=== PATIENT | female | born 1930 | race Caucasian/White ===

== ENCOUNTER → 2016-12-10 | Outpatient (CLI) | payer MEDICARE, OTHER ==
[~2016-12-10] MED LIST: ACHD5005 PO; ACID1TAB PO; ALPR0.25 PO; ALPR0.254 PO; AML5T PO; AMLO5TAB2 PO; BISO1TAB39 PO; BISO5TAB8 PO; BP MED?; CEPH500C PO; CIPR500T78 PO; CLN.1T PO; CLN.1TRX PO; CLON0.1T PO; CLON0.1T14 PO; CLON0.2T; CLON0.2T12 PO; CLON1PAT16 TD; CPR500T PO; CYAN100081 PO; DICY10CA12 PO; DICY10CA59 PO; DOXA1TAB2 PO; DOXA2TAB2 PO; FOLIC ACID PO; HYDR-3714 PO; HYDR-3812 PO; HYDR-3924 PO; INDA1.25 PO; IRB150T PO; ISOS20TA73 PO; LACT1CAP69 PO; LBT200T PO; LEVO250T7 PO; LEVO50TA PO; LEVO75TA57 PO; LEVO75TA6 PO; LISI40TA PO; LORA10TA7 PO; LOSA50TA6 PO; LRT10T PO; METO-272 PO; METO25TA PO; METR500T PO; METR500T21 PO; MOXI400T2 PO; MTR500T PO; ONDA4SOL2 PO; ONDA4TAB11 PO; ONDA4TAB2 PO; ONDA8TAB9 PO; PANT40TA3 PO; PHEN16.223 PO; PHEN16.297 PO; POLY17PO23 PO; SIME80TA16 PO; [UNRECOGNIZED DRUG - REMARK]
[2016-12-10 10:08] LABS: BASOPHILS % (AUTO) 0 % (0-10); EOSINOPHILS # (AUTO) 0.1 10^3/uL (0.0-0.3); EOSINOPHILS % (AUTO) 1 % (0-10); LYMPHOCYTES % (AUTO) 20 % (12-44); MEAN CORPUSCULAR HEMOGLOBIN 31 PG (25-34); MEAN CORPUSCULAR HGB CONC 33 G/DL (32-36); MEAN CORPUSCULAR VOLUME 93 FL (80-99); MONOCYTES # (AUTO) 0.4 X 10^3 (0.0-1.0); MONOCYTES % (AUTO) 7 % (0-12); NEUTROPHILS # (AUTO) 3.7 X 10^3 (1.8-7.8); NEUTROPHILS % (AUTO) 71 % (42-75); PLATELET COUNT 170 10^3/uL (130-400); RED BLOOD COUNT 4.37 10^6/uL (4.35-5.85); RED CELL DISTRIBUTION WIDTH 13.8 % (10.0-14.5); WHITE BLOOD COUNT 5.1 10^3/uL (4.3-11.0)
--- OUTSIDE RECORDS SUMMARY | 2016-12-10 10:08 | XMS REPORT | Continuity of Care Document ---
Author Author [facility] Organization [facility] Address Unknown Phone Unavailable Care Team Providers Care Pastry Wrapper Name Role Phone FAWAD JACOBSON MD PCP Insurance Providers Payer Name Policy Number Subscriber Name Relationship [employer] [id number] Angel Pierre 18 Self / Same As Patient [facility] [id number] Angel Pierre 18 Self / Same As Patient Advance Directives Directive Response Recorded Date/Time Advance Directives Yes 04/05/15 1:04pm Health Care Power of Direct Mail Manager Lea NAEEM GILDA 04/05/15 1:04pm Organ Donor Yes 04/05/15 1:04pm Resuscitation Status Full Code 04/05/15 1:04pm Chief Complaint and Reason for Visit Chief Complaint DIVERTICULITIS;UTI Reason for Visit Diverticulitis Diverticulosis of sigmoid colon Abdominal left lower quadrant tenderness Hypertension Hyponatremia syndrome Problems Medical Problems Problem Onset Date Status Diverticulitis Unknown Active Diverticulosis of sigmoid colon Unknown Active Neck pain on left side Unknown Active Abdominal left lower quadrant tenderness Unknown Active Diverticulosis of sigmoid colon Unknown Active Diverticulosis of sigmoid colon Unknown Active Hypertension Unknown Active Hypertensive urgency Unknown Active Urinary tract infection Unknown Active Nausea alone Unknown Active Hyponatremia syndrome Unknown Active Left sided abdominal pain of unknown cause Unknown Active Hypertensive urgency Unknown Active Constipation Unknown Active Hypertensive urgency Unknown Active Medications Medication Dose Route Sig Days/Qty Instructions Order Date Discontinued Date Status [Bp Med?] DAILY 05/06/12 10/30/13 Discontinued [Thyroid?] DAILY 05/06/12 10/30/13 Discontinued Cephalexin Monohydrate (Keflex) 1 Each PO FOUR TIMES DAILY 7 Days 05/0610/30/13 Discontinued Bisoprolol Fumarate/HCTZ 1 Tab PO DAILY 30 Qty 10/30/13 02/08/14 Discontinued Levothyroxine Sodium 75 Mcg PO DAILY 10/30/13 04/05/15 Discontinued Bisoprolol Fumarate 5 Mg PO DAILY 02/08/14 02/12/14 Discontinued Phenobarb/Hyoscy/Atropine/Scop 16.2 Mg PO THREE TIMES A DAY 02/08/14 02/08/14 Discontinued Acetaminophen/Hydrocodone Bitart 1 Tab PO EVERY 4HRS PRN HEADACHE NEEDED FOR HEADACHE 02/08/14 04/02/15 Discontinued Losartan Potassium 50 Mg PO EVERY 12 HOURS PRN BLOOD PRESSURE 02/12/14 Discontinued Phenobarb/Hyoscy/Atropine/Scop 16.2 Mg PO THREE TIMES A DAY PRN DIVERTICULITUS NEEDED FOR DIVERTICULITIS 02/08/14 06/27/14 Discontinued Loratadine 10 Mg PO DAILY PRN ALLERGIES 02/08/14 01/03/15 Discontinued Labetalol HCl (Trandate) 1 Each PO TWICE A DAY 60 Qty 02/12/14 Discontinued Indapamide 1.25 Mg PO DAILY 03/30/14 06/27/14 Discontinued Losartan Potassium 50 Mg PO EVERY 12 HOURS PRN HYPERTENSION 03/30/14 06/27/14 Discontinued Bisoprolol Fumarate 5 Mg PO DAILY 03/30/14 06/27/14 Discontinued Clonidine Hcl 0.1 Mg PO TWICE A DAY 60 Qty FOR BLOOD PRESSURE 03/30/14 06/27/14 Discontinued Clonidine HCl 0.1 Mg PO NEEDED PRN HYPERTENSION 06/27/14 Discontinued Dicyclomine Hcl 10 Mg PO EVERY 6 HOURS PRN ABDOMINAL PAIN 06/27/14 04/02/15 Discontinued Amlodipine Besylate (Norvasc 5 Mg) 5 Mg PO DAILY 06/27/14 06/28/14 Discontinued Amlodipine Besylate 5 Mg PO TWICE A DAY 60 Qty 06/28/14 01/03/15 Discontinued Clonidine HCl 0.1 Mg PO TWICE A DAY 60 Qty 06/28/14 04/02/15 Discontinued Metoprolol Succinate (Toprol Xl) 1 Each PO DAILY 01/03/15 04/02/15 Discontinued Moxifloxacin Hcl 400 Mg PO DAILY 5 Days 01/03/15 04/02/15 Discontinued Lactobacillus Combo No.10 1 Each PO TWICE A DAY 14 Qty 01/03/15 Discontinued Clonidine HCl 0.2 Mg PO THREE TIMES A DAY 04/02/15 Active Acetaminophen/Hydrocodone Bitart 1 Tab PO EVERY 4HRS PRN PAIN Active Dicyclomine HCl 10 Mg PO EVERY 6 HOURS PRN PAIN 04/02/15 04/08/15 Discontinued Alprazolam 0.25 Mg PO EVERY 8HRS 04/02/15 04/08/15 Discontinued Levothyroxine Sodium 0.5 Each PO DIRECTED 04/02/15 04/05/15 Discontinued Ciprofloxacin HCl 500 Mg PO TWICE A DAY 14 Qty 04/03/15 04/08/15 Discontinued Metronidazole 1 Each PO THREE TIMES A DAY 20 Qty 04/03/15 04/08/15 Discontinued Polyethylene Glycol 17 Gm PO DAILY PRN CONSTIPATION 30 Qty FOR CONSTIPATION 04/03/15 04/05/15 Discontinued Levothyroxine Sodium 75 Mcg PO DIRECTED 30 Qty 04/05/15 04/08/15 Discontinued Levothyroxine Sodium 0.5 Each PO DIRECTED 30 Qty TAKE EVERY TUE. SAT. . 04/05/15 04/08/15 Discontinued Polyethylene Glycol 17 Gm PO DAILY 30 Qty 04/05/15 04/08/15 Discontinued Ondansetron Hcl 4 Mg PO EVERY 4HRS For Nausea 4 Qty 04/05/15 04/08/15 Discontinued Ciprofloxacin HCl 500 Mg PO TWICE A DAY 14 Qty 7 DAY THERAPY FILLED 04/08/15 Active Metronidazole 500 Mg PO THREE TIMES A DAY 20 Qty 04/08/15 Active Polyethylene Glycol 17 Gm PO DAILY 04/08/15 Active Alprazolam 0.25 Mg PO THREE TIMES A DAY PRN ANXIETY 04/08/15 Active Dicyclomine Hcl 10 Mg PO EVERY 6 HOURS PRN PAIN 04/08/15 Active Ondansetron Hcl 4 Mg PO EVERY 4HRS PRN NAUSEA 04/08/15 Active Levothyroxine Sodium 75 Mcg PO MON, WED, FRI 04/08/15 Active Levothyroxine Sodium 37.5 Mcg PO HENDRICKSON,,,SA TAKES 1/2 (75MCG) TABLET 04/08/15 Active Metoprolol Succinate (Toprol Xl) 50 Mg PO BEDTIME OF THIS FOR 2 WEEKS AND HAS NOT BEEN TAKING IT BECAUSE THERE WERE NO 04/08/15 04/08/15 Discontinued Metronidazole 500 Mg PO THREE TIMES A DAY 30 Qty 04/12/15 Active Acidophilus 1 Tab.chew PO BEFORE MEALS 30 Qty 04/12/15 Active Levofloxacin 1 Each PO DAILY 7 Qty 04/12/15 Active Social History Social History Problem Response Recorded Date/Time Alcohol Use Denies Use 04/05/2015 1:05pm Recreational Drug Use No 04/05/2015 1:05pm Recent Foreign Travel No 06/27/2014 5:07pm Recent Infectious Disease Exposure No 06/27/2014 5:07pm Smoking Status Never a Smoker 04/05/2015 1:07pm Do you dip or chew tobacco? No 04/05/2015 1:07pm Query Response Start Date Stop Date Smoking Status Never a Smoker Hospital Discharge Instructions Patient Instructions Physician Instructions Prescription: Transmitted to Pharmacy Patient Instructions: pt to start on the levaquin tomorrow 04/13/15 pt to start metronidazole this evening 04/12/15 pt to call the office on tuesday for an appt in the next 7 to 10 days from discharge Resume Normal Activity: Yes Discharge Diet: Low Residue (no nuts, seeds, popcorn, corn, peas, berries with seeds) Diet After 24 Hours: Clear Liquid if Nauseous Symptoms to Reoprt to DrEfrain: Appetite Changes, Fever Over 101 Degrees F, Diarrhea(Persistant), Shortness of Breath For Problems or Questions: Contact Your Physician, Go to Emergency Room Care Plan Patient Instructions:: pt to start on the levaquin tomorrow 04/13/15pt to start metronidazole this evening 04/12/15pt to call the office on tuesday for an [facility] Discharge Date 04/12/15 1:17pm Disposition 30 STILL A PATIENT Instructions/Education Provided Diverticulitis (DC) Hyponatremia (DC) Diverticulitis Diet (DC) Prescriptions See Medications Section Functional Status Query Response Date Recorded Comprehension Ability Understands Concepts April 08, 2015 8:00am Allergies, Adverse Reactions, Alerts Allergen Type Severity Reaction Status Last Updated Codeine Allergy Unknown N/V Active 02/08/14 Immunizations Name Given Type Date of Pneumonia Vaccine 09/14/12 Historical Date of Influenza Vaccine 08/14/14 Historical Vital Signs Acute Vital Signs Vital Response Date/Time Temperature (Fahrenheit) 96.5 degrees F (97.6 - 99.5) Temperature (Calculated Celsius) 35.70309 degrees C (36.4 - 37.5) Temperature Source Temporal Pulse Rate (adult) 57 bpm (60 - 90) Respiratory Rate 16 bpm (12 - 24) O2 Sat by Pulse Oximetry 100 % (88 - 100) Blood Pressure 178/83 mm Hg Pain Pain Intensity 0 Height (Feet) 5 feet Height (Inches) 1.00 inches Height (Calculated Centimeters) 154.376282 cm Weight (Pounds) 99 pounds Weight (Ounces) 4.0 oz Weight (Calculated Grams) 59292.043 gm Weight (Calculated Kilograms) 45.894930 kilograms Calculated BMI 18.70 Results Laboratory Results Test Name Result Units Flags Reference Collection Date/Time Result Date/ Time Comments White Blood Count 9.5 10^3/uL 4.3-11.0 04/02/2015 11:10pm 04/02/2015 11 :21pm Red Blood Count 4.03 10^6/uL L 4.35-5.85 04/02/2015 11:04/02/2015 11 :21pm Hemoglobin 12.4 G/DL 11.5-16.0 04/02/2015 11:04/02/2015 11:21pm Hematocrit 37 % 35-52 04/02/2015 11:04/02/2015 11:21pm Mean Corpuscular Volume 92 FL 80-99 04/02/2015 11:04/02/2015 11: 21pm Mean Corpuscular Hemoglobin 31 PG 25-34 04/02/2015 11:04/02/2015 11:21pm Mean Corpuscular Hemoglobin Concent 34 G/DL 32-36 04/02/2015 11: 11:21pm Red Cell Distribution Width 12.9 % 10.0-14.5 04/02/2015 11:102014 11:21pm Platelet Count 192 10^3/uL 130-400 04/02/2015 11:1004/02/2015 11: 21pm Mean Platelet Volume 9.6 FL 7.4-10.4 04/02/2015 11:10pm 04/02/2015 11: 21pm Neutrophils (%) (Auto) 78 % H 42-75 04/02/2015 11:10pm 04/02/2015 11: 21pm Lymphocytes (%) (Auto) 15 % 12-44 04/02/2015 11:10pm 04/02/2015 11: 21pm Monocytes (%) (Auto) 7 % 0-12 04/02/2015 11:1004/02/2015 11:21pm Eosinophils (%) (Auto) 0 % 0-10 04/02/2015 11:1004/02/2015 11:21pm Basophils (%) (Auto) 0 % 0-10 04/02/2015 11:1004/02/2015 11:21pm Neutrophils # (Auto) 7.4 X 10^3 1.8-7.8 04/02/2015 11:10pm 04/02/2015 11:21pm Lymphocytes # (Auto) 1.4 X 10^3 1.0-4.0 04/02/2015 11:1004/02/2015 11:21pm Monocytes # (Auto) 0.7 X 10^3 0.0-1.0 04/02/2015 11:10pm 04/02/2015 11: 21pm Eosinophils # (Auto) 0.0 10^3/uL 0.0-0.3 04/02/2015 11:10pm 04/02/2015 11:21pm Basophils # (Auto) 0.0 10^3/uL 0.0-0.1 04/02/2015 11:10pm 04/02/2015 11 :21pm Urine Color YELLOW 04/02/2015 11:0504/02/2015 11:33pm Urine Clarity CLEAR 04/02/2015 11:05pm 04/02/2015 11:33pm Urine pH 7 5-9 04/02/2015 11:05pm 04/02/2015 11:33pm Urine Specific Crandall 1.005 * 1.016-1.022 04/02/2015 11:05pm 2014 11:33pm Urine Protein NEGATIVE NEGATIVE 04/02/2015 11:05pm 04/02/2015 11: 33pm Urine Glucose (UA) NEGATIVE NEGATIVE 04/02/2015 11:05pm 04/02/2015 11 :33pm Urine RBC (Auto) NEGATIVE NEGATIVE 04/02/2015 11:05pm 04/02/2015 11: 33pm Urine Ketones NEGATIVE NEGATIVE 04/02/2015 11:05pm 04/02/2015 11: 33pm Urine Nitrite NEGATIVE NEGATIVE 04/02/2015 11:05pm 04/02/2015 11: 33pm Urine Bilirubin NEGATIVE NEGATIVE 04/02/2015 11:05pm 04/02/2015 11: 33pm Urine Urobilinogen NORMAL MG/DL NORMAL 04/02/2015 11:05pm 04/02/2015 11 :33pm Urine Leukocyte Esterase 1+ * NEGATIVE 04/02/2015 11:05pm 04/02/2015 11 :33pm Urine RBC NONE /HPF 04/02/2015 11:05pm 04/02/2015 11:33pm Urine WBC 10-25 /HPF * 04/02/2015 11:05pm 04/02/2015 11:33pm Urine Bacteria TRACE /HPF 04/02/2015 11:05pm 04/02/2015 11:33pm Urine Squamous Epithelial Cells RARE /HPF 04/02/2015 11:05pm 2014 11:33pm Urine Crystals NONE /LPF 04/02/2015 11:05pm 04/02/2015 11:33pm Urine Casts NONE /LPF 04/02/2015 11:05pm 04/02/2015 11:33pm Urine Mucus NEGATIVE /LPF 04/02/2015 11:05pm 04/02/2015 11:33pm Urine Culture Indicated YES 04/02/2015 11:0504/02/2015 11:33pm Sodium Level 127 MMOL/L L 135-145 04/02/2015 11:1004/02/2015 11:43pm Potassium Level 3.5 MMOL/L L 3.6-5.0 04/02/2015 11:10pm 04/02/2015 11: 43pm Chloride Level 95 MMOL/L L 98-107 04/02/2015 11:10pm 04/02/2015 11:43pm Carbon Dioxide Level 18 MMOL/L L 21-32 04/02/2015 11:10pm 04/02/2015 11: 43pm Blood Urea Nitrogen 7 MG/DL 7-18 04/02/2015 11:10pm 04/02/2015 11:43pm Creatinine 0.79 MG/DL 0.60-1.30 04/02/2015 11:1004/02/2015 11:43pm BUN/Creatinine Ratio 9 04/02/2015 11:04/02/2015 11:43pm Estimat Glomerular Filtration Rate > 60 04/02/2015 11:2014 11:43pm GFR INTERPRETIVE DATA UNITS FOR ESTIMATED GFR (eGFR): mL/min/1.73 M2 REFERENCE RANGE FOR ESTIMATED GFR (eGFR) eGFR NORMAL eGFR >60 MODERATELY DECREASED eGFR 30-59 SEVERLY DECREASED eGFR 15-29 KIDNEY FAILURE <15 (OR DIALYSIS) Glucose Level 115 MG/DL H 70-105 04/02/2015 11:10pm 04/02/2015 11:43pm Calcium Level 10.2 MG/DL H 8.5-10.1 04/02/2015 11:04/02/2015 11: 43pm Total Bilirubin 1.1 MG/DL H 0.1-1.0 04/02/2015 11:04/02/2015 11: 43pm Alkaline Phosphatase 74 U/L 40-136 04/02/2015 11:04/02/2015 11: 43pm Aspartate Amino Transf (AST/SGOT) 33 U/L 5-34 04/02/2015 11:102014 11:43pm Alanine Aminotransferase (ALT/SGPT) 20 U/L 0-55 04/02/2015 11:10 11:43pm Total Protein 7.5 G/DL 6.4-8.2 04/02/2015 11:04/02/2015 11:43pm Albumin 4.6 G/DL H 3.2-4.5 04/02/2015 11:04/02/2015 11:43pm Lipase 40 U/L 8-78 04/02/2015 11:1004/02/2015 11:43pm C-Reactive Protein High Sensitivity 0.06 MG/DL 0.00-0.50 04/02/2015 11: 04/02/2015 11:43pm White Blood Count 4.0 10^3/uL L 4.3-11.0 04/09/2015 5:15am 04/09/2015 5: 40am Red Blood Count 3.67 10^6/uL L 4.35-5.85 04/09/2015 5:1504/09/2015 5: 40am Hemoglobin 11.4 G/DL L 11.5-16.0 04/09/2015 5:1504/09/2015 5:40am Hematocrit 34 % L 35-52 04/09/2015 5:1504/09/2015 5:40am Mean Corpuscular Volume 94 FL 80-99 04/09/2015 5:1504/09/2015 5: 40am Mean Corpuscular Hemoglobin 31 PG 25-34 04/09/2015 5:1504/09/2015 5: 40am Mean Corpuscular Hemoglobin Concent 33 G/DL 32-36 04/09/2015 5:15 5:40am Red Cell Distribution Width 13.5 % 10.0-14.5 04/09/2015 5:152014 5:40am Platelet Count 159 10^3/uL 130-400 04/09/2015 5:1504/09/2015 5:40am Mean Platelet Volume 9.5 FL 7.4-10.4 04/09/2015 5:1504/09/2015 5: 40am Neutrophils (%) (Auto) 67 % 42-75 04/09/2015 5:04/09/2015 5:40am Lymphocytes (%) (Auto) 22 % 12-44 04/09/2015 5:1504/09/2015 5:40am Monocytes (%) (Auto) 9 % 0-12 04/09/2015 5:1504/09/2015 5:40am Eosinophils (%) (Auto) 3 % 0-10 04/09/2015 5:1504/09/2015 5:40am Basophils (%) (Auto) 0 % 0-10 04/09/2015 5:1504/09/2015 5:40am Neutrophils # (Auto) 2.7 X 10^3 1.8-7.8 04/09/2015 5:1504/09/2015 5: 40am Lymphocytes # (Auto) 0.9 X 10^3 L 1.0-4.0 04/09/2015 5:1504/09/2015 5: 40am Monocytes # (Auto) 0.4 X 10^3 0.0-1.0 04/09/2015 5:15am 04/09/2015 5: 40am Eosinophils # (Auto) 0.1 10^3/uL 0.0-0.3 04/09/2015 5:15am 04/09/2015 5 :40am Basophils # (Auto) 0.0 10^3/uL 0.0-0.1 04/09/2015 5:15am 04/09/2015 5: 40am Neutrophils % (Manual) 91 % 04/05/2015 8:20am 04/05/2015 9:04am Lymphocytes % (Manual) 6 % 04/05/2015 8:20am 04/05/2015 9:04am Monocytes % (Manual) 3 % 04/05/2015 8:20am 04/05/2015 9:04am Blood Morphology Comment NORMAL 04/05/2015 8:20am 04/05/2015 9: 04am Urine Color YELLOW 04/05/2015 9:40am 04/05/2015 10:02am Urine Clarity CLEAR 04/05/2015 9:40am 04/05/2015 10:02am Urine pH 7 5-9 04/05/2015 9:40am 04/05/2015 10:02am Urine Specific Crandall 1.010 * 1.016-1.022 04/05/2015 9:40am 2014 10:02am Urine Protein 1+ * NEGATIVE 04/05/2015 9:40am 04/05/2015 10:02am Urine Glucose (UA) NEGATIVE NEGATIVE 04/05/2015 9:40am 04/05/2015 10: 02am Urine RBC (Auto) NEGATIVE NEGATIVE 04/05/2015 9:40am 04/05/2015 10: 02am Urine Ketones NEGATIVE NEGATIVE 04/05/2015 9:40am 04/05/2015 10:02am Urine Nitrite NEGATIVE NEGATIVE 04/05/2015 9:40am 04/05/2015 10:02am Urine Bilirubin NEGATIVE NEGATIVE 04/05/2015 9:40am 04/05/2015 10: 02am Urine Urobilinogen NORMAL MG/DL NORMAL 04/05/2015 9:40am 04/05/2015 10: 02am Urine Leukocyte Esterase 1+ * NEGATIVE 04/05/2015 9:40am 04/05/2015 10: 02am Urine RBC NONE /HPF 04/05/2015 9:40am 04/05/2015 10:02am Urine WBC RARE /HPF 04/05/2015 9:40am 04/05/2015 10:02am Urine Bacteria NEGATIVE /HPF 04/05/2015 9:40am 04/05/2015 10:02am Urine Squamous Epithelial Cells 5-10 /HPF 04/05/2015 9:40am 2014 10:02am Urine Crystals NONE /[facility] 04/05/2015 9:40am 04/05/2015 10:02am Urine Casts PRESENT /[facility] 04/05/2015 9:40am 04/05/2015 10:02am Urine Hyaline Casts RARE /[facility] 04/05/2015 9:40am 04/05/2015 10:02am Urine Mucus NEGATIVE /[facility] 04/05/2015 9:40am 04/05/2015 10:02am Urine Culture Indicated NO 04/05/2015 9:40am 04/05/2015 10:02am Sodium Level 140 MMOL/L 135-145 04/10/2015 6:07am 04/10/2015 7:10am Potassium Level 3.1 MMOL/L L 3.6-5.0 04/10/2015 6:07am 04/10/2015 7:10am Chloride Level 110 MMOL/L H 98-107 04/10/2015 6:07am 04/10/2015 7:10am Carbon Dioxide Level 21 MMOL/L 21-32 04/10/2015 6:07am 04/10/2015 7: 10am Blood Urea Nitrogen 5 MG/DL L 7-18 04/10/2015 6:07am 04/10/2015 7:10am Creatinine 0.67 MG/DL 0.60-1.30 04/10/2015 6:07am 04/10/2015 7:10am BUN/Creatinine Ratio 7 04/10/2015 6:07am 04/10/2015 7:10am Estimat Glomerular Filtration Rate > 60 04/10/2015 6:07am 2014 7:10am GFR INTERPRETIVE DATA UNITS FOR ESTIMATED GFR (eGFR): mL/min/1.73 M2 REFERENCE RANGE FOR ESTIMATED GFR (eGFR) eGFR NORMAL eGFR >60 MODERATELY DECREASED eGFR 30-59 SEVERLY DECREASED eGFR 15-29 KIDNEY FAILURE <15 (OR DIALYSIS) Glucose Level 92 MG/DL 70-105 04/10/2015 6:07am 04/10/2015 7:10am Calcium Level 9.2 MG/DL 8.5-10.1 04/10/2015 6:07am 04/10/2015 7:10am Total Bilirubin 0.7 MG/DL 0.1-1.0 04/09/2015 5:15am 04/09/2015 6:05am Alkaline Phosphatase 53 U/L 40-136 04/09/2015 5:15am 04/09/2015 6:05am Aspartate Amino Transf (AST/SGOT) 33 U/L 5-34 04/09/2015 5:15am 2014 6:05am Alanine Aminotransferase (ALT/SGPT) 22 U/L 0-55 04/09/2015 5:15am 04/09 6:05am Total Protein 5.5 G/DL L 6.4-8.2 04/09/2015 5:15am 04/09/2015 6:05am Albumin 3.6 G/DL 3.2-4.5 04/09/2015 5:15am 04/09/2015 6:05am Amylase Level 128 U/L H 25-125 04/05/2015 8:20am 04/05/2015 8:54am Lipase 37 U/L 8-78 04/05/2015 8:20am 04/05/2015 8:54am Procedures No known history of procedures. Encounters Encounter Location Date/Time Discharged Inpatient [facility] 04/05/15 9:35am Departed Emergency Room [facility] 04/02/15 9:32pm Recent Diagnosis Diverticulitis Diverticulosis of sigmoid colon Abdominal left lower quadrant tenderness Hypertension Hyponatremia syndrome
[2016-12-10 10:28] LABS: BILIRUBIN,URINE NEGATIVE (NEGATIVE); KETONES,URINE NEGATIVE (NEGATIVE); LEUKOCYTE ESTERASE ,URINE NEGATIVE (NEGATIVE); NITRITE,URINE NEGATIVE (NEGATIVE); PH,URINE 7 (5-9); PROTEIN,URINE NEGATIVE (NEGATIVE); UROBILINOGEN,URINE NORMAL (NORMAL)
[2016-12-10 10:30] LABS: ALANINE AMINOTRANSFERASE 15 U/L (0-55); ALBUMIN 4.4 G/DL (3.2-4.5); ANION GAP 9 MMOL/L (5-14); ASPARTATE AMINO TRANSFERASE 22 U/L (5-34); BILIRUBIN,TOTAL 0.9 MG/DL (0.1-1.0); BLOOD UREA NITROGEN 14 MG/DL (7-18); BUN/CREATININE RATIO 17; CARBON DIOXIDE 24 MMOL/L (21-32); CHLORIDE 101 MMOL/L (98-107); CHOLESTEROL 201 MG/DL (< 200); CREATININE SERUM 0.82 MG/DL (0.60-1.30); DIRECT LDL 128 MG/DL (1-129); GFR ESTIMATED > 60; GLUCOSE 76 MG/DL (70-105); POTASSIUM 4.6 MMOL/L (3.6-5.0); SODIUM 134 MMOL/L (135-145); TOTAL PROTEIN 6.8 G/DL (6.4-8.2); TRIGLYCERIDES 161 MG/DL (<150); VLDL CHOLESTEROL 32 MG/DL (5-40)
[2016-12-10 10:39] LABS: SQUAMOUS EPITHELIAL CELL,UR RARE /HPF
== END ==
LOC: HH 09:00
PROVIDERS: ATTEND Family Medicine
DX: I10 Essential (primary) hypertension (principal)
CPT/HCPCS: 80053; 80061; 81000; 85025

== ENCOUNTER → 2017-08-04 | Outpatient (CLI) | payer MEDICARE ==
--- NOTE | 2017-08-04 11:00 | Diagnostic Imaging Report ---
INDICATION: Diverticulitis. Small and large bowel gas pattern was unremarkable. No pathological fecal loading or abnormal bowel distention. No evidence for free air at this exam. IMPRESSION: Nonspecific unremarkable bowel gas pattern. Dictated by: Dictated on workstation # [id number]
== END ==
LOC: RAD 10:08
PROVIDERS: ATTEND Nurse Practitioner Family
DX: R10.84 Generalized abdominal pain (principal)
CPT/HCPCS: 74020

== ENCOUNTER → 2017-08-22 | Outpatient (CLI) | payer MEDICARE ==
[~2017-08-22] MED LIST changes: +IOHEXOL 350 MG/ML 100 ML (OMNIPAQUE 350) VIAL IV ONE; +NS 100 ML (IVPB) BAG IV ONE
[2017-08-22 12:34] LABS: BLOOD UREA NITROGEN 13 MG/DL (7-18); BUN/CREATININE RATIO 15; CREATININE SERUM 0.87 MG/DL (0.60-1.30); GFR ESTIMATED > 60
--- NOTE | 2017-08-22 13:47 | Diagnostic Imaging Report ---
PROCEDURE: CT abdomen and pelvis with contrast. TECHNIQUE: Multiple contiguous axial images were obtained through the abdomen and pelvis after administration of intravenous contrast. INDICATION: Left lower quadrant pain. 100 mL of Omnipaque 350 is administered intravenously. COMPARISON: 08/28/2015. FINDINGS: The lung bases demonstrate minimal atelectasis or scarring in the left lung base. There is a pectus excavatum deformity involving the lower sternum. The liver demonstrates a left hepatic lobe hypodense lesion measuring 8 mm. This is slightly more prominent compared to 08/28/2015 exam and is likely related to a cyst. The spleen, the pancreas and the adrenal glands appear unremarkable. The kidneys have symmetric enhancement and contrast excretion. There is no hydronephrosis. There is diverticulosis. No diverticulitis. There are distended bowel loops which appears to be mostly along the proximal colon and distal small bowel loops near ileocolic anastomosis in the midabdomen. The proximal small bowel loops are not significantly dilated. The findings may relate to enteritis. There is no significant free fluid or fluid collection in the abdomen or pelvis. The osseous structures demonstrate degenerative changes and left convexity scoliosis. There is internal fixation hardware in the proximal right humerus. The abdominal aorta is normal in caliber. No paraaortic significantly enlarged lymph node is seen. IMPRESSION: 1. Diverticulosis. No diverticulitis. 2. There is distention of distal small bowel loops and proximal colon with air-fluid levels favored to be related to enteritis. Correlate clinically and with followup exams if needed. Dictated by: Dictated on workstation # [id number]
== END ==
LOC: RAD 12:09
PROVIDERS: ATTEND Nurse Practitioner Family
DX: K57.30 Diverticulosis of large intestine without perforation or abscess without bleeding (principal); K63.89 Other specified diseases of intestine
CPT/HCPCS: 36415; 74177; 82565; 84520

== ENCOUNTER → 2018-01-10 | Outpatient (CLI) | payer MEDICARE ==
[~2018-01-10] MED LIST changes: -HYDR-3812 PO; -IOHEXOL 350 MG/ML 100 ML (OMNIPAQUE 350) VIAL IV ONE; -NS 100 ML (IVPB) BAG IV ONE
--- NOTE | 2018-01-10 17:21 | Diagnostic Imaging Report ---
INDICATION: Neck and back pain. COMPARISON: None. FINDINGS: Frontal and lateral radiographic views of the thoracic spine were obtained. There is moderate S-shaped scoliotic deformity of the thoracolumbar spine. AP alignment is maintained. There is no significant anteroretrolisthesis. There is no evidence of jumped facets. There are mild multilevel degenerative changes. Please note, the superior margins of the thoracic spine are suboptimally evaluated secondary to overlying osseous and soft tissue attenuation. There appear to be multiple wedge-shaped deformities of the superior thoracic spine. These are age-indeterminate. Mid and lower thoracic vertebral body heights are maintained without evidence of acute fracture. Included lung valenzuela are clear. IMPRESSION: 1. S-shaped scoliotic deformity of the thoracolumbar spine with mild multilevel degenerative changes. 2. Compression deformities of the superior thoracic spine are age indeterminate. Correlation with point tenderness is recommended. If there is concern for acute fracture, correlation with MRI is recommended. Dictated by: Dictated on workstation # [id number]
--- NOTE | 2018-01-10 18:09 | Diagnostic Imaging Report ---
INDICATION: Neck pain. TIME OF EXAM: 4:54 PM FINDINGS: Three-view cervical spine shows normal lordotic curvature. There is severe multilevel degenerative disc disease particularly at C4-5, C5-6 and C6-7 levels where there is significant disc space narrowing and marginal osteophyte formation. In addition, there is severe bilateral multilevel facet arthropathy. Facets are hypertrophic and sclerotic. Prevertebral tissues are unremarkable. No fracture is identified. IMPRESSION: Severe cervical spondylosis. No acute bony abnormality is detected. Dictated by: Dictated on workstation # [id number]
== END ==
LOC: RAD 15:55
PROVIDERS: ATTEND Family Medicine
DX: M47.22 Other spondylosis with radiculopathy, cervical region (principal); M47.25 Other spondylosis with radiculopathy, thoracolumbar region; M41.85 Other forms of scoliosis, thoracolumbar region; M43.8X4 Other specified deforming dorsopathies, thoracic region
CPT/HCPCS: 72040; 72072

== ENCOUNTER → 2018-01-18 | Outpatient (CLI) | payer MEDICARE ==
--- NOTE | 2018-01-18 14:27 | Diagnostic Imaging Report ---
INDICATION: Neck pain and back pain. TECHNIQUE: Multiplanar multisequence imaging of the thoracic spine was performed without contrast. FINDINGS: There is hyper kyphotic curvature to the thoracic spine. There is edema identified within the T3 and T5 vertebral bodies. There appears to be a fracture through the inferior endplate of T3 and the superior endplate of T5. Very minimal loss of height is seen. There is a chronic compression fracture deformity of the T4 vertebral body which demonstrates normal homogeneous signal intensity. No retropulsion is identified. The remaining thoracic vertebrae demonstrate normal stature and normal signal. The thoracic spinal cord demonstrates homogeneous signal intensity. No central canal stenosis is seen. IMPRESSION: Findings consistent with acute T3 and T5 compression fractures without evidence of retropulsion. There is a chronic compression fracture deformity of T4 vertebral body. Dictated by: Dictated on workstation # [id number]
== END ==
LOC: RAD 11:47
PROVIDERS: ATTEND Family Medicine
DX: S22.049A Unspecified fracture of fourth thoracic vertebra, initial encounter for closed fracture (principal)
CPT/HCPCS: 72146

== ENCOUNTER → 2018-02-08 | Outpatient (CLI) | payer MEDICARE ==
--- NOTE | 2018-02-08 13:55 | Diagnostic Imaging Report ---
INDICATION: Back pain AP and lateral views of the lumbar spine are obtained. There is some loss of height of L1 which is of indeterminate age. L2-L5 are normal in height. There is some disc space narrowing at L5-S1 with osteophyte formation. There is slight anterolisthesis of L3 on L4. There is facet degenerative change at L4-5 and L5-S1. IMPRESSION: 1. Degenerative changes in the lumbar spine at L5-S1 and L3-4. There is loss of height of L1 of indeterminate age. If there is focal pain in this area, consider MRI to determine if this is acute. Dictated by: Dictated on workstation # [id number]
--- NOTE | 2018-02-08 14:06 | Diagnostic Imaging Report ---
INDICATION: Fall with bilateral hip pain. TIME OF EXAM: 1:54 p.m. Multiple views of the pelvis and bilateral hips were obtained. FINDINGS: An intramedullary sarbjit and compression screw transfix the right hip. Hardware appears intact. Femoroacetabular alignment is normal bilaterally. No fractures are seen. The rami appear intact. SI joints and symphysis are non-widened. IMPRESSION: Postop changes of the right hip. No acute bony abnormality is detected. Dictated by: Dictated on workstation # [id number]
--- NOTE | 2018-02-08 14:23 | Diagnostic Imaging Report ---
PROCEDURE: CT head without contrast. TECHNIQUE: Multiple contiguous axial images were obtained through the brain without the use of intravenous contrast. INDICATION: Fall with head injury. COMPARISON: Comparison is made with prior exam from 10/14/2016. FINDINGS: The ventricles and sulci are prominent consistent with patient's age. Moderate periventricular hypodensity is noted consistent with senescent change. No sulcal effacement, midline shift or hemorrhage is detected. Cisterns are patent. The visualized paranasal sinuses are clear. IMPRESSION: Senescent changes. No acute intracranial process is detected. Dictated by: Dictated on workstation # [id number]
== END ==
LOC: RAD 13:15
PROVIDERS: ATTEND Nurse Practitioner Family
DX: S09.90XA Unspecified injury of head, initial encounter (principal); M47.817 Spondylosis without myelopathy or radiculopathy, lumbosacral region; M51.36 Other intervertebral disc degeneration, lumbar region; W19.XXXA Unspecified fall, initial encounter
CPT/HCPCS: 70450; 72100; 73523

== ENCOUNTER → 2018-02-20 | Outpatient (CLI) | payer MEDICARE, OTHER ==
--- NOTE | 2018-02-20 15:04 | Diagnostic Imaging Report ---
PROCEDURE: MRI lumbar spine. TECHNIQUE: Multiplanar, multisequence MRI of the lumbar spine was performed without contrast. DATE: 02/20/2018. COMPARISON: Lumbar spine radiographs 02/08/2018. INDICATION: 87-year-old female, fall three weeks ago. Low back pain with bilateral leg pain and tingling. FINDINGS: There is a compression fracture of the L1 vertebral body with visualized fracture line and marrow edema consistent with an acute fracture. There is slight retropulsion of the posterior superior aspect of the L1 vertebral body beyond the expected posterior vertebral body margin by 2.5 mm. There is no associated spinal stenosis. There is approximately 25% vertebral body height loss at this level. There is no additional identified compression deformity. There is minimal grade 1 anterolisthesis of L3 on L4. There is no evidence of marrow infiltrating or replacing process. 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 The visualized cord and conus medullaris is unremarkable and terminates at the L1 level. There is dgvuciwq-sr-qcsytx disc height loss at L3-L4. There is aeok-hc-kbzfmpxy disc height loss at L4-L5. There is severe disc height loss at L5-S1. L1-L2: There is no disc bulge. The facet joints and ligamentum flavum are unremarkable. There is no foraminal narrowing. There is no spinal canal stenosis. L2-L3: There is no disc bulge. The facet joints and ligamentum flavum are unremarkable. There is no foraminal narrowing. There is no spinal canal stenosis. L3-L4: There is diffuse disc bulge. There are advanced bilateral facet degenerative changes with ligamentum flavum hypertrophy. There is mild right foraminal narrowing. There is gscokmqn-lt-adincm spinal canal stenosis. L4-L5: There is diffuse disc bulge. There are advanced facet degenerative changes with ligamentum flavum hypertrophy. There is mild right greater than left foraminal narrowing. There is siufmumc-cz-oegjqj spinal canal stenosis. L5-S1: There is a tiny broad-based posterior disc protrusion without identified nerve root contact. The facet joints and ligamentum flavum are unremarkable. There is no foraminal narrowing. There is no spinal canal stenosis. IMPRESSION: 1. Acute compression fracture of the L1 vertebral body with approximately 25% height loss and slight retropulsion of the posterior superior aspect of the L1 vertebral body towards the spinal canal measuring 2.5 mm without associated spinal stenosis. 2. Disc and facet degenerative changes of the lumbar spine most notable at L3-L4 and L4-L5 as described above. Dictated by: Dictated on workstation # [id number]
== END ==
LOC: RAD 13:39
PROVIDERS: ATTEND Orthopaedic Surgery Orthopaedic Surgery of the Spine
DX: M48.56XA Collapsed vertebra, not elsewhere classified, lumbar region, initial encounter for fracture (principal); M48.061 Spinal stenosis, lumbar region without neurogenic claudication; M89.9 Disorder of bone, unspecified; M51.26 Other intervertebral disc displacement, lumbar region; M47.896 Other spondylosis, lumbar region; M51.36 Other intervertebral disc degeneration, lumbar region
CPT/HCPCS: 72148

== ENCOUNTER → 2018-03-30 | Outpatient (CLI) | payer MEDICARE ==
--- NOTE | 2018-03-30 16:47 | Diagnostic Imaging Report ---
INDICATION: Osteoporosis. COMPARISON: No prior studies are available for comparison. FINDINGS: Bone mineral analysis of the lumbar spine and left hip was performed. The patient appears to have hardware in the right hip. Bone mineral density of the lumbar spine is 0.628 with a T score -4.8. Bone mineral density of the left femoral neck is 0.598 with a T score -3.2. 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 Dictated by: Dictated on workstation # [id number]
== END ==
LOC: RAD 10:33
PROVIDERS: ATTEND Neurological Surgery
DX: M81.0 Age-related osteoporosis without current pathological fracture (principal)
CPT/HCPCS: 77080

== ENCOUNTER → 2018-05-11 | Outpatient (CLI) | payer MEDICARE ==
[~2018-05-11] VITALS: Ht 157.5 cm; Wt 46.2 kg
[~2018-05-11] MED LIST changes: +CARV6.252 PO; +CRAN500C4 PO; +DENOSUMAB 60 MG/1 ML (PROLIA) SQ ONE; +DOCU100C37 PO; +ESTR42.52 VG; +FESO4TAB PO; +FOLI20CA PO; +L.AC1CAP6 PO; +OMEP20CA12 PO
[2018-05-11 13:43] VITALS: BP 140/62
[2018-05-11 14:02] VITALS: BP 140/62
== END ==
LOC: SDC 12:59
PROVIDERS: ATTEND Family Medicine
DX: M81.0 Age-related osteoporosis without current pathological fracture (principal)
CPT/HCPCS: 96372

== ENCOUNTER → 2018-06-13 | Outpatient (CLI) | payer MEDICARE ==
[~2018-06-13] MED LIST changes: -DENOSUMAB 60 MG/1 ML (PROLIA) SQ ONE
--- NOTE | 2018-06-13 13:11 | Diagnostic Imaging Report ---
INDICATION: Left lower quadrant abdominal pain. COMPARISON: 08/04/2017. FINDINGS: Supine and upright radiographic views of the abdomen were obtained. A few air-fluid levels are noted scattered throughout the large and small bowel. Small bowel loops are nondistended. There is no large collection of free intraperitoneal air. No unexpected extraosseous calcifications or radiopaque foreign bodies are seen. Included portions of the lung bases show mild enlargement of the cardiac silhouette. 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 IMPRESSION: Few air-fluid levels are seen scattered throughout the large and small bowel, but small bowel loops are otherwise nondistended. Findings are nonspecific, but can be seen with underlying enteritis/diarrhea. Dictated by: Dictated on workstation # [id number]
== END ==
LOC: RAD 12:29
PROVIDERS: ATTEND Nurse Practitioner Family
DX: R10.32 Left lower quadrant pain (principal)
CPT/HCPCS: 74019

== ENCOUNTER → 2018-07-03 | Outpatient (CLI) | payer MEDICARE ==
[~2018-07-03] MED LIST changes: +IOHEXOL 350 MG/ML 100 ML (OMNIPAQUE 350) VIAL IV ONE; +NS 250 ML (IVPB) BAG IV ONE
[2018-07-03 14:31] LABS: BUN/CREATININE RATIO 13; CREATININE SERUM 0.86 MG/DL (0.60-1.30); GFR ESTIMATED > 60
--- NOTE | 2018-07-03 15:43 | Diagnostic Imaging Report ---
PROCEDURE: CT abdomen and pelvis with contrast. TECHNIQUE: Multiple contiguous axial images were obtained through the abdomen and pelvis after administration of intravenous contrast. INDICATION: Left lower quadrant abdominal pain for two months. COMPARISON: Comparison is made to study of 08/22/2017. FINDINGS: There is mild cardiomegaly with persistent pectus excavatum. No focal splenic lesion is identified. 1 cm nodule in the lateral segment of the left hepatic lobe is unchanged and likely represents a cyst. Gallbladder, pancreas and adrenal glands are stable and unremarkable in appearance. There is no evidence of adrenal gland or renal lesion. There is excretion of contrast from both kidneys. There is mild fluid distention of small bowel with moderate amount of stool throughout the colon. There does appear to be twisting of mesenteric vessels in the right lower quadrant adjacent to site of previous surgical suture line. This is also site of most pronounced fluid distention of distal small bowel. Partially opacified urinary bladder is unremarkable. There is no organized fluid collection to indicate abscess or hematoma. There is rather advanced lumbar spondylosis with L1 compression fracture of indeterminate age. IMPRESSION: 1. Twisting of the mesentery in the right lower quadrant with distention of distal small bowel with fluid. Partial closed loop small bowel obstruction cannot be fully excluded. Consideration could be given to small bowel follow-through for assessment. 2. Compression fracture at L1 was not definitely present on previous study and clinical correlation to possible pain at this site would be useful. Dictated by: Dictated on workstation # [id number]
== END ==
LOC: RAD 14:01
PROVIDERS: ATTEND Nurse Practitioner Family
DX: K56.2 Volvulus (principal); K56.609 Unspecified intestinal obstruction, unspecified as to partial versus complete obstruction
CPT/HCPCS: 36415; 74177; 82565; 84520

== ENCOUNTER 2019-06-27 07:48 | Inpatient (IN) | payer MEDICARE ==
[~2019-06-27] VITALS: Ht 160 cm; Wt 49.2 kg
[~2019-06-27 07:48] MED LIST changes: +AMLO5TAB9 PO; -IOHEXOL 350 MG/ML 100 ML (OMNIPAQUE 350) VIAL IV ONE; +METR-145 PO; -METR500T21 PO; -NS 250 ML (IVPB) BAG IV ONE; -OMEP20CA12 PO; +OMEP20CA13 PO
--- NOTE | 2019-06-27 07:48 | NUR ---
ABRASION/SKIN TEAR TO RIGHT LOWER LEG. PT STATES THAT DID NOT HAPPEN TODAY ET IT WAS SEVERAL WEEKS AGO.
--- NOTE | 2019-06-27 08:04 | ED Fall/Injury ---
General Stated Complaint: FALL;R HIP PAIN Source: patient, EMS, senior care records Exam Limitations: no limitations History of Present Illness Date Seen by Provider: Jun 27, 2019 Time Seen by Provider: 07:41 Initial Comments Patient presents to ER by EMS with chief complaint that last night around 10:00 in the assisted living at [facility] she had a fall and pulled her call light immediately. She denies that she struck her head or loss consciousness. No nausea sweats headache. She was helped back to bed and this morning was unable to stand and put any weight on her right leg. She's not having any external ro tation or deformity obviously. She has no cough fever chills nausea vomiting diarrhea or constipation. She does have a history of chronic pain and uses hydrocodone. She does not require anything for pain from EMS. She is not on a blood thinner and is not diabetic. She does endorse dementia. She has feeling in her bilateral toes and able to wiggle them. She denies dysuria. Last oral intake was last night at dinnertime. Allergies and Home Medications Allergies Coded Allergies: aspirin (Verified Allergy, Unknown, 02/11/16) codeine (Verified Adverse Reaction, Unknown, N/V, 08/29/15) losartan (Unverified Adverse Reaction, Unknown, DIZZINESS, 08/29/15) Home Medications Amlodipine Besylate 5 Mg Tablet, 5 MG PO DAILY, (Reported) Carvedilol 6.25 Mg Tablet, 6.25 MG PO BID, (Reported) Cranberry Extract 500 Mg Capsule, 500 MG PO DAILY, (Reported) Docusate Sodium 100 Mg Capsule, 100 MG PO BID, (Reported) Estradiol 42.5 Gm Cream.appl, 1.25 GM VG DAILY, (Reported) Fesoterodine Fumarate 4 Mg Tab.sr.24h, 4 MG PO DAILY, (Reported) Folic Acid 20 Mg Capsule, 20 MG PO DAILY, (Reported) L.acidoph & Paracasei,B.lactis 1 Each Capsule, 2 EACH PO DAILY, (Reported) Levothyroxine Sodium 50 Mcg Tablet, 50 MCG PO DAILY, (Reported) Lisinopril 40 Mg Tablet, 20 MG PO BID, (Reported) TAKES 1/2 (40MG) TABLET Omeprazole 20 Mg Capsule.dr, 20 MG PO DAILY, (Reported) Patient Home Medication List Home Medication List Reviewed: Yes Review of Systems Review of Systems Constitutional: No chills, No diaphoresis Eyes: Denies Blindness, Denies Blurred Vision Ears, Nose, Mouth, Throat: denies ear pain, denies nose pain Respiratory: No cough, No short of breath Cardiovascular: No chest pain, No edema Gastrointestinal: No abdominal pain, No constipation, No diarrhea Genitourinary: No discharge, No dysuria Musculoskeletal: see HPI, joint pain Skin: other (skin tear on the anterior distal right smith) Past Svriivk-Qfnfvn-Dcslqr Hx Patient Social History Alcohol Use: Denies Use Recreational Drug Use: No Smoking Status: Never a Smoker 2nd Hand Smoke Exposure: No Recent Hopitalizations: No Immunizations Up To Date Tetanus Booster (TDap): Unknown PED Vaccines UTD: No Date of Pneumonia Vaccine: Aug 14, 2010 Date of Influenza Vaccine: Aug 14, 2014 Seasonal Allergies Seasonal Allergies: Yes Past Medical History Abdominal, Appendectomy, Eye Surgery, Hysterectomy, Oophorectomy, Tonsillectomy Asthma Currently Using CPAP: No Currently Using BIPAP: No Hypertension Reproductive Disorders: Yes Female Reproductive Disorders: Endometriosis [employer] History: Hysterectomy, Menopausal Sexually Transmitted Disease: No HIV/AIDS: No Obstructive Bowel, Chronic Constipation, Diverticulosis, Irritable Bowel Arthritis Hypothyroidsim Cataract Loss of Vision: Denies Hearing Impairment: Denies Anxiety, Depression Adverse Reaction/Blood Tranf: No Family Medical History Alcoholism 03 FATHER, 09 BROTHER, 09 BROTHER, Cancer 09 BROTHER, 09 BROTHER, Cataract 09 SISTER Family history: Arthritis 09 SISTER 09 SISTER, 09 SISTER, Family history: Breast disease 09 SISTER Family history: Cardiovascular disease 09 SISTER Family history: Glaucoma 09 SISTER, Family history: Hypertension 03 FATHER, 03 MOTHER, 09 BROTHER, 09 BROTHER, 09 SISTER 09 SISTER, Family history: Osteoporosis 09 SISTER 09 SISTER, 09 SISTER, Headache 03 MOTHER, Heart disease 09 SISTER Tuberculosis 09 BROTHER, Visual impairment 09 SISTER No Family History of: Abdominal aortic aneurysm Cancer of colon Chest pain Congenital heart disease Congestive heart failure Cystic fibrosis Dementia Dysphagia Family history: Allergy Family history: Alzheimer's disease Family history: Asthma Family history: Coronary thrombosis Family history: Diabetes mellitus Family history: Gastrointestinal disease Family history: Thyroid disorder Hearing loss Hereditary disease History of - anemia History of - disorder History of - respiratory disease History of drug abuse Human immunodeficiency virus (HIV) seropositivity Hypercholesterolemia Infertile Kidney disease Malignant neoplasm of lung Myocardial infarction Parkinson's disease Prostate cancer Psychotic disorder Seizure disorder Stroke Heart Disease, Cancer, Hypertension Physical Exam Vital Signs Vital Signs - First Documented 06/27/19 07:48 Temp 96.5 Pulse 66 Resp 16 B/P (MAP) 141/77 (98) Pulse Ox 89 O2 Delivery Nasal Cannula O2 Flow Rate 2.00 Capillary Refill : Height, Weight, BMI Height: 5'2.00" Weight: 101lbs. 12.0oz. 46.398101bt; 18.6 BMI Method:Stated General Appearance: WD/WN, no apparent distress HEENT: PERRL/EOMI, normal ENT inspection, TMs normal, pharynx normal, other (atraumatic head without Raceo sign and raccoon eyes or hemotympanum.) Neck: non-tender, full range of motion, supple, normal inspection Cardiovascular: normal peripheral pulses, regular rate, rhythm Respiratory: lungs clear, normal breath sounds, no respiratory distress, no accessory muscle use Peripheral Pulses: 2+ Dorsalis Pedis (R), 2+ Left Dors-Pedis (L), 2+ Radial Pulses (R), 2+ Radial Pulses (L) Gastrointestinal: normal bowel sounds, non tender, soft, no organomegaly Neurologic/Psychiatric: no motor/sensory deficits, alert, normal mood/affect, oriented x 3 Skin: other (V-shaped superficial skin tear left smith) [place] Coma Score Best Eye Response: (4) Open Spontaneously Best Verbal Response: (5) Oriented Best Motor Response: (6) Obeys Commands [place] Total: 15 Progress/Results/Core Measures Results/Orders Lab Results Laboratory Tests Test 06/27/19 08:03 06/27/19 08:07 Range/Units Urine Color YELLOW Urine Clarity CLEAR Urine pH 6.5 5-9 Urine Specific [place] 1.010 L 1.016-1.022 Urine Protein NEGATIVE NEGATIVE Urine Glucose (UA) NEGATIVE NEGATIVE Urine Ketones NEGATIVE NEGATIVE Urine Nitrite NEGATIVE NEGATIVE Urine Bilirubin NEGATIVE NEGATIVE Urine Urobilinogen NORMAL NORMAL MG/DL Urine Leukocyte Esterase 2+ H NEGATIVE Urine RBC (Auto) NEGATIVE NEGATIVE Urine RBC 0-2 /HPF Urine WBC 2-5 /HPF Urine Squamous Epithelial Cells RARE /HPF Urine Crystals NONE /LPF Urine Bacteria TRACE /HPF Urine Casts NONE /LPF Urine Mucus NEGATIVE /LPF Urine Culture Indicated YES White Blood Count 9.5 4.3-11.0 10^3/uL Red Blood Count 3.82 L 4.35-5.85 10^6/uL Hemoglobin 11.8 11.5-16.0 G/DL Hematocrit 34 L 35-52 % Mean Corpuscular Volume 89 80-99 FL Mean Corpuscular Hemoglobin 31 25-34 PG Mean Corpuscular Hemoglobin Concent 35 32-36 G/DL Red Cell Distribution Width 12.7 10.0-14.5 % Platelet Count 176 130-400 10^3/uL Mean Platelet Volume 9.3 7.4-10.4 FL Neutrophils (%) (Auto) 88 H 42-75 % Lymphocytes (%) (Auto) 6 L 12-44 % Monocytes (%) (Auto) 6 0-12 % Eosinophils (%) (Auto) 0 0-10 % Basophils (%) (Auto) 0 0-10 % Neutrophils # (Auto) 8.3 H 1.8-7.8 X 10^3 Lymphocytes # (Auto) 0.6 L 1.0-4.0 X 10^3 Monocytes # (Auto) 0.6 0.0-1.0 X 10^3 Eosinophils # (Auto) 0.0 0.0-0.3 10^3/uL Basophils # (Auto) 0.0 0.0-0.1 10^3/uL Neutrophils % (Manual) 89 % Lymphocytes % (Manual) 4 % Monocytes % (Manual) 4 % Eosinophils % (Manual) 1 % Basophils % (Manual) 0 % Band Neutrophils 2 % Blood Morphology Comment NORMAL Prothrombin Time 13.0 12.2-14.7 SEC INR Comment 0.9 0.8-1.4 Activated Partial Thromboplast Time 36 H 24-35 SEC Sodium Level 122 *L 135-145 MMOL/L Potassium Level 4.8 3.6-5.0 MMOL/L Chloride Level 91 L 98-107 MMOL/L Carbon Dioxide Level 23 21-32 MMOL/L Anion Gap 8 5-14 MMOL/L Blood Urea Nitrogen 13 7-18 MG/DL Creatinine 1.05 0.60-1.30 MG/DL Estimat Glomerular Filtration Rate 49 BUN/Creatinine Ratio 12 Glucose Level 114 H 70-105 MG/DL Calcium Level 9.5 8.5-10.1 MG/DL Corrected Calcium 9.2 8.5-10.1 MG/DL Total Bilirubin 0.9 0.1-1.0 MG/DL Aspartate Amino Transf (AST/SGOT) 32 5-34 U/L Alanine Aminotransferase (ALT/SGPT) 17 0-55 U/L Alkaline Phosphatase 87 40-136 U/L Total Protein 7.1 6.4-8.2 GM/DL Albumin 4.4 3.2-4.5 GM/DL My Orders Orders - DANA,LISA J Chest 1 View, Ap/Pa Only (06/27/19 07:56) Ct Head/Cervical Spine Wo (06/27/19 07:56) Catheter(Urinary) Insert & Ass 03,15 (06/27/19 07:56) Ua Culture If Indicated (06/27/19 07:56) Cbc With Automated Diff (06/27/19 07:56) Comprehensive Metabolic Panel (06/27/19 07:56) Protime With Inr (06/27/19 07:56) Partial Thromboplastin Time (06/27/19 07:56) Hip, Right, 2 Views (06/27/19 07:58) Manual Differential (06/27/19 08:07) Urine Culture (06/27/19 08:03) Ed Iv/Invasive Line Start (06/27/19 08:41) Ns Iv 500 Ml (Sodium Chloride 0.9%) (06/27/19 08:41) Fentanyl Injection (Sublimaze Injection (06/27/19 09:15) Ct Pelvis Wo (06/27/19 09:49) Fentanyl Injection (Sublimaze Injection (06/27/19 10:00) Ed Iv/Invasive Line Start (06/27/19 11:08) Ns Iv 500 Ml (Sodium Chloride 0.9%) (06/27/19 11:08) Hydrocodone/Apap 10/325 Tablet (Lortab 1 (06/27/19 11:30) General/Regular (06/27/19 Lunch) Medications Given in ED Current Medications Medications Dose Ordered Sig/Ranjit Route Start Time Stop Time Status Last Admin Dose Admin Acetaminophen/ Hydrocodone Bitart 1 ea ONCE ONCE PO 06/27/19 11:30 06/27/19 11:31 DC 06/27/19 11:45 1 EA Fentanyl Citrate 50 mcg ONCE ONCE IVP 06/27/19 09:15 06/27/19 09:16 DC 06/27/19 09:15 50 MCG Fentanyl Citrate 50 mcg ONCE ONCE IVP 06/27/19 10:00 06/27/19 10:01 DC 06/27/19 10:19 50 MCG Sodium Chloride 500 ml @ 0 mls/hr Q0M ONCE IV 06/27/19 08:41 06/27/19 08:42 DC 06/27/19 09:10 500 MLS/HR Sodium Chloride 500 ml @ 0 mls/hr Q0M ONCE IV 06/27/19 11:08 06/27/19 11:09 DC 06/27/19 11:46 500 MLS/HR Vital Signs/I&O 06/27/19 06/27/19 07:48 07:48 Temp 96.5 Pulse 66 Resp 16 B/P (MAP) 141/77 (98) Pulse Ox 89 89 O2 Delivery Nasal Cannula Room Air O2 Flow Rate 2.00 Progress Progress Note #1: Time: 08:03 Progress Note It's been 10 hours since her fall and we have offered to do imaging of her head versus observation and she preferred to do imaging. X-ray of the right hip, chest x-ray Roberto catheter urinalysis and labs to include PT/INR and PTT. Progress Note #2: Time: 10:41 Progress Note Left voicemail with Dr. Paul, orthopedic surgery. Noted 3 fractures of the right sacral alar and inferior/superior pubic rami. Progress Note #3: Time: 10:51 Progress Note When I have inpatient physical therapy come down and advise where she would qualify and if not then we'll look for an observation stay so they can set up some, rehabilitation home. Her daughter advises that she stayed at [facility] after she fractured her hip and would be okay to go back there. Progress Note #4: Time: 13:29 Progress Note Inpatient physical therapy has continued working with her insurance to get her approved however they said it will be some time before they get an answer. Plan to discuss the case with primary care Dr. Graham about an observation stay for pain management and consult for placement. The patient's daughter states that she stayed in the [facility] after fracturing her hip and would prefer to go that direction if inpatient physical therapy is not available. Diagnostic Imaging Diagonstic Imaging: Xray Plain Films/CT/US/NM/MRI: chest (1v) Comments NAME: ANGEL STARK [facility] REC#: [id number] PT STATUS: REG ER : 1930 PHYSICIAN: LISA CORTEZ MD ADMIT DATE: 06/27/19/ER Draft Date of Exam:06/27/19 CHEST 1 VIEW, AP/PA ONLY INDICATION: Fall. Time of exam: 8:55 AM Comparison is made with prior chest from 10/13/2016. The heart is enlarged but stable. The lungs appear clear. No infiltrates are seen. There is no effusion or pneumothorax. IMPRESSION: No acute cardiopulmonary process is detected. Dictated on workstation # [id number] Dict: 06/27/19908 Trans: 06/27/19911 ELA [id number] Interpreted by: JO-ANN SANTACRUZ MD Electronically signed by: Reviewed: Reviewed by Me Diagonstic Imaging: Xray Plain Films/CT/US/NM/MRI: hip (r) Comments [facility], [place] NAME: ANGEL STARK [facility] REC#: [id number] PT STATUS: REG ER : 1930 PHYSICIAN: LISA CORTEZ MD ADMIT DATE: 06/27/19/ER Draft Date of Exam:06/27/19 HIP, RIGHT, 2 VIEWS Indication: Pain Comparison: 02/08/2018 Technique: 2 radiographs of the right hip dated 06/27/2019 Findings: Gamma nail is again noted within the proximal right femur, appearing stable from the prior examination without evidence of hardware complication. Chain sutures noted within the lower pelvis, just the right of midline. No acute fracture or dislocation. No obstructive osseous process. Right femoral head maintains normal shape and contour. Impression: Postsurgical changes within the right femur without evidence of hardware complication. If there remains high clinical concern for underlying occult fracture, further evaluation with CT could be obtained. Dictated on workstation # [id number] Dict: 06/27/19904 Trans: 06/27/19909 CVB [id number] Interpreted by: JIGAR DE LEON MD Electronically signed by: Reviewed: Reviewed by Me Diagonstic Imaging: CT (noncontrast) Plain Films/CT/US/NM/MRI: c-spine, head Comments [facility], [place] NAME: ANGEL STARK [employer] [facility] REC#: [id number] PT STATUS: REG ER : 1930 PHYSICIAN: LISA CORTEZ MD ADMIT DATE: 06/27/19/ER Draft Date of Exam:06/27/19 CT HEAD/CERVICAL SPINE WO PROCEDURE: CT head and CT cervical spine without contrast. TECHNIQUE: Multiple contiguous axial images were obtained through the brain and cervical spine without the use of intravenous contrast. Sagittal and coronal reformations through the cervical spine were then performed. Auto Exposure Controls were utilized during the CT exam to meet ALARA standards for radiation dose reduction. INDICATION: Fall. COMPARISON: Correlation is made with prior head CT from 02/08/2018. CT HEAD: Ventricles and sulci are prominent consistent with the patient's age. Moderate periventricular hypodensity is noted consistent with senescent change. No midline shift or sulcal effacement is identified. No acute intra-axial or extra-axial hemorrhage is detected. Cisterns are patent. Visualized paranasal sinuses are clear. IMPRESSION: Senescent changes. No acute intracranial process is detected. CT CERVICAL SPINE: Alignment is normal. There is osseous fusion between the C4 and C5 vertebral bodies. There is severe degenerative disc disease at the C5-6 and C6-7 levels with disc space narrowing and marginal spurring. Prevertebral tissues are normal. No fractures are seen. Odontoid appears intact. IMPRESSION: Severe cervical spondylosis. No acute bony abnormality is detected. Dictated on workstation # [id number] Dict: 06/27/19 0855 Trans: 06/27/19 0911 SHARON [id number] Interpreted by: JO-ANN SANTACRUZ MD Electronically signed by: Reviewed: Reviewed by Me Diagonstic Imaging: CT (noncontrast) Plain Films/CT/US/NM/MRI: pelvis (r hip) Comments NAME: ANGEL STARK [employer] [facility] REC#: [id number] PT STATUS: REG ER : 1930 PHYSICIAN: LISA CORTEZ MD ADMIT DATE: 06/27/19/ER Draft Date of Exam:06/27/19 CT PELVIS WO PROCEDURE: CT pelvis without contrast. TECHNIQUE: Multiple contiguous axial images were obtained through the pelvis without the use of intravenous contrast. Sagittal and coronal reformations were performed. Auto Exposure Controls were utilized during the CT exam to meet ALARA standards for radiation dose reduction. INDICATION: Fall and pelvic pain. There appears to be a fracture of the right sacral ala. The left sacral ala is intact. SI joints are not widened. There is also an acute fracture of the right inferior pubic ramus. There is cortical irregularity and probable fracture involving the right superior pubic ramus near the junction with the anterior column of the right acetabulum. The left superior and inferior pubic rami are intact. Femoral acetabular alignment is normal bilaterally. Postsurgical changes of the right hip are seen. No free fluid in the pelvis is identified. No hematoma is identified. IMPRESSION: Right-sided pelvic fractures, as described. Dictated on workstation # [id number] Dict: 06/27/19 1021 Trans: 06/27/19 1026 [facility] [id number] Interpreted by: JO-ANN SANTACRUZ MD Electronically signed by: Consults : Consulting Physician: TRICIA PAUL DO Consults Notes Discussed the case with Dr. Paul and he recommends that this is a nonsurgical issue and she would be appropriate for physical therapy, weightbearing as tolerated and early mobility. Departure Communication (Admissions) Time/Spoke to Admitting Phy: 13:43 Dr. Graham agrees to observe the patient for pain management and placement and would recommend looking for a rehabilitation facility. Impression Primary Impression: Closed fracture of single pubic ramus of pelvis Qualified Codes: S32.591A - Other specified fracture of right pubis, initial encounter for closed fracture Additional Impression: Pelvis fracture, right Disposition: ADMITTED INPATIENT Condition: Stable Admissions Decision to Admit Reason: Admit from ER (General) Decision to Admit/Date: Jun 27, 2019 Time/Decision to Admit Time: 10:54 Departure-Patient Inst. Referrals: FAWAD GRAHAM MD (PCP/Family) Primary Care Physician LISA CORTEZ Jun 27, 2019 08:04
[2019-06-27 08:08] LABS: BILIRUBIN,URINE NEGATIVE (NEGATIVE); CLARITY,URINE CLEAR; COLOR,URINE YELLOW; GLUCOSE, URINE (UA) NEGATIVE (NEGATIVE); KETONES,URINE NEGATIVE (NEGATIVE); LEUKOCYTE ESTERASE ,URINE 2+ (NEGATIVE); NITRITE,URINE NEGATIVE (NEGATIVE); PH,URINE 6.5 (5-9); PROTEIN,URINE NEGATIVE (NEGATIVE); UROBILINOGEN,URINE NORMAL (NORMAL)
[2019-06-27 08:12] LABS: BASOPHILS % (AUTO) 0 % (0-10); EOSINOPHILS % (AUTO) 0 % (0-10); HEMATOCRIT 34 % (35-52); HEMOGLOBIN 11.8 G/DL (11.5-16.0); LYMPHOCYTES # (AUTO) 0.6 X 10^3 (1.0-4.0); LYMPHOCYTES % (AUTO) 6 % (12-44); MEAN CORPUSCULAR HEMOGLOBIN 31 PG (25-34); MEAN CORPUSCULAR HGB CONC 35 G/DL (32-36); MEAN CORPUSCULAR VOLUME 89 FL (80-99); MEAN PLATELET VOLUME 9.3 FL (7.4-10.4); MONOCYTES # (AUTO) 0.6 X 10^3 (0.0-1.0); MONOCYTES % (AUTO) 6 % (0-12); NEUTROPHILS # (AUTO) 8.3 X 10^3 (1.8-7.8); NEUTROPHILS % (AUTO) 88 % (42-75); PLATELET COUNT 176 10^3/uL (130-400); RED CELL DISTRIBUTION WIDTH 12.7 % (10.0-14.5); WHITE BLOOD COUNT 9.5 10^3/uL (4.3-11.0)
[2019-06-27 08:24] LABS: BACTERIA,URINE TRACE /HPF; RBC,URINE 0-2 /HPF; SQUAMOUS EPITHELIAL CELL,UR RARE /HPF
[2019-06-27 08:30] LABS: INR 0.9 (0.8-1.4)
[2019-06-27 08:31] LABS: ALBUMIN 4.4 GM/DL (3.2-4.5); BILIRUBIN,TOTAL 0.9 MG/DL (0.1-1.0); CALCIUM 9.5 MG/DL (8.5-10.1); CREATININE SERUM 1.05 MG/DL (0.60-1.30); POTASSIUM 4.8 MMOL/L (3.6-5.0); TOTAL PROTEIN 7.1 GM/DL (6.4-8.2)
[2019-06-27] MEDS ORDERED: NS IV 500 ML 500 ML IV ONE ×2 (08:41→11:08)
[2019-06-27 08:50] LABS: BAND NEUTROPHILS 2 %; BASOPHILS % (MANUAL) 0 %; EOSINOPHILS % (MANUAL) 1 %; LYMPHOCYTES % (MANUAL) 4 %; MONOCYTES % (MANUAL) 4 %; NEUTROPHILS % (MANUAL) 89 %; RBC MORPH NORMAL
--- NOTE | 2019-06-27 09:08 | NUR ---
PT COMPLAINS OF PAIN RIGHT HIP. NOTIFIED.
--- NOTE | 2019-06-27 09:11 | Diagnostic Imaging Report ---
Indication: Pain Comparison: 02/08/2018 Technique: 2 radiographs of the right hip dated 06/27/2019 Findings: Gamma nail is again noted within the proximal right femur, appearing stable from the prior examination without evidence of hardware complication. Chain sutures noted within the lower pelvis, just the right of midline. No acute fracture or dislocation. No obstructive osseous process. Right femoral head maintains normal shape and contour. Impression: Postsurgical changes within the right femur without evidence of hardware complication. If there remains high clinical concern for underlying occult fracture, further evaluation with CT could be obtained. Dictated by: Dictated on workstation # [id number]
--- NOTE | 2019-06-27 09:11 | Diagnostic Imaging Report ---
PROCEDURE: CT head and CT cervical spine without contrast. TECHNIQUE: Multiple contiguous axial images were obtained through the brain and cervical spine without the use of intravenous contrast. Sagittal and coronal reformations through the cervical spine were then performed. Auto Exposure Controls were utilized during the CT exam to meet ALARA standards for radiation dose reduction. INDICATION: Fall. COMPARISON: Correlation is made with prior head CT from 02/08/2018. CT HEAD: Ventricles and sulci are prominent consistent with the patient's age. Moderate periventricular hypodensity is noted consistent with senescent change. No midline shift or sulcal effacement is identified. No acute intra-axial or extra-axial hemorrhage is detected. Cisterns are patent. Visualized paranasal sinuses are clear. IMPRESSION: Senescent changes. No acute intracranial process is detected. CT CERVICAL SPINE: Alignment is normal. There is osseous fusion between the C4 and C5 vertebral bodies. There is severe degenerative disc disease at the C5-6 and C6-7 levels with disc space narrowing and marginal spurring. Prevertebral tissues are normal. No fractures are seen. Odontoid appears intact. IMPRESSION: Severe cervical spondylosis. No acute bony abnormality is detected. Dictated by: Dictated on workstation # [id number]
--- NOTE | 2019-06-27 09:13 | Diagnostic Imaging Report ---
INDICATION: Fall. Time of exam: 8:55 AM Comparison is made with prior chest from 10/13/2016. The heart is enlarged but stable. The lungs appear clear. No infiltrates are seen. There is no effusion or pneumothorax. IMPRESSION: No acute cardiopulmonary process is detected. Dictated by: Dictated on workstation # [id number]
[2019-06-27] MEDS ORDERED: fentaNYL INJECTION 100 MCG/2 ML AMP IVP ONE ×2 (09:15→10:00)
--- NOTE | 2019-06-27 10:20 | NUR ---
IN ROOM TALKING TO DAUGHTER WHO JUST ARRIVED.
--- NOTE | 2019-06-27 10:26 | Diagnostic Imaging Report ---
PROCEDURE: CT pelvis without contrast. TECHNIQUE: Multiple contiguous axial images were obtained through the pelvis without the use of intravenous contrast. Sagittal and coronal reformations were performed. Auto Exposure Controls were utilized during the CT exam to meet ALARA standards for radiation dose reduction. INDICATION: Fall and pelvic pain. There appears to be a fracture of the right sacral ala. The left sacral ala is intact. SI joints are not widened. There is also an acute fracture of the right inferior pubic ramus. There is cortical irregularity and probable fracture involving the right superior pubic ramus near the junction with the anterior column of the right acetabulum. The left superior and inferior pubic rami are intact. Femoral acetabular alignment is normal bilaterally. Postsurgical changes of the right hip are seen. No free fluid in the pelvis is identified. No hematoma is identified. IMPRESSION: Right-sided pelvic fractures, as described. Dictated by: Dictated on workstation # [id number]
--- NOTE | 2019-06-27 10:43 | NUR ---
IN TALKING WITH PT AND FAMILY.
--- NOTE | 2019-06-27 11:00 | NUR ---
[facility] Received referral notification from ER. Chart review complete and findings discussed with Dr. Snowden - patient accepted. Met with patient and daughter to discuss details of rehabilitation program. Patient is agreeable to required therapy regimen and admission. It is noted patient's primary insurance is [facility]; therefore, a prior authorization is required, prior to admission. Dr. Concepcion notified of insurance requirement. Insurance auth process initiated. Will continue to follow. Thank you for this referral.
[2019-06-27] MEDS ORDERED: HYDROcodone/APAP 10 MG/325 MG (LORTAB) TAB PO ONE (11:30)
--- NOTE | 2019-06-27 12:04 | NUR ---
LUNCH ORDERD FOR PT.
--- NOTE | 2019-06-27 13:33 | NUR ---
RESTING IN BED. DENIES NEEDS AT THIS TIME. DAUGHTER HAS LEFT TO GO EAT LUNCH AND WILL BE BACK.
--- NOTE | 2019-06-27 13:51 | NUR ---
IN TALKING TO PT AT THIS TIME.
[2019-06-27 14:28] VITALS: BP 144/79
[2019-06-27] MEDS ORDERED: ONDANSETRON 4 MG/2 ML (SDV) Z0FRAN IV PRN (14:30)
--- NOTE | 2019-06-27 14:30 | NUR ---
ANGEL STARK admitted to room 416-1, with an admitting diagnosis of FALL, PELVIC FRACTURE AND PAIN MANAGEMENT, on 06/27/19 from ED via BED, accompanied by STAFF AND DAUGHTER. ANGEL STARK introduced to surroundings, call light, bed controls, phone, TV, temperature control, lights, meal times, smoking policy, visitor policy, side rail policy, bathrooms and showers. Patient Rights given to patient in the handbook. ANGEL STARK verbalizes understanding that [facility] is not responsible for the loss or damage to any personal effects or valuables that are kept in the patients posession during their hospitalization. The following Patient Care Plans were discussed with the PATIENT: Discharge Planning, PAIN, IMMOBILITY AND KNOWLEDGE. ANGEL STARK verbalizes understanding of Interdisciplinary Patient Education.
[2019-06-27] MEDS ORDERED: CATHETER FLUSH 10 ML SYR IV PRN (14:45)
--- NOTE | 2019-06-27 14:53 | Physical Therapy Progress Note ---
Therapy Progress Note PT eval orders received. Patient in ER here with pelvic fx, just got the the 4th floor a few minutes ago. Patient refuses at this time. Will attempt eval in the morning. MUKESH COON PT Jun 27, 2019 14:53
[2019-06-27] MEDS ORDERED: MAGN400O7 PO (15:42)
[2019-06-27] MEDS ORDERED: DIPH25TA65 PO (15:42)
[2019-06-27] MEDS ORDERED: DOCU-143 PO (15:42)
[2019-06-27] MEDS ORDERED: TR1C15 TOP (15:42)
[2019-06-27] MEDS ORDERED: DICL100G31 TOP (15:42)
[2019-06-27] MEDS ORDERED: MELA5CAP PO (15:42)
[2019-06-27] MEDS ORDERED: RANI150T11 PO (15:42)
[2019-06-27] MEDS ORDERED: POLY17PO6 PO (15:42)
[2019-06-27] MEDS ORDERED: TR1C15 TP (15:42)
[2019-06-27] MEDS ORDERED: DULO20CA19 PO (15:42)
[2019-06-27] MEDS ORDERED: FURO20TA4 PO (15:42)
[2019-06-27] MEDS ORDERED: LISI10TA2 PO (15:42)
[2019-06-27] MEDS ORDERED: CALC300T4 PO (15:42)
[2019-06-27] MEDS ORDERED: ALPR0.254 PO ×2 (15:42)
[2019-06-27] MEDS ORDERED: ALPH1TAB8 PO (15:42)
[2019-06-27] MEDS ORDERED: POTA10TA10 PO (15:42)
[2019-06-27] MEDS ORDERED: SIME180C4 PO (15:42)
[2019-06-27] MEDS ORDERED: LEVO50TA6 PO (15:42)
[2019-06-27] MEDS ORDERED: IBUP-30 PO (15:42)
[2019-06-27] MEDS ORDERED: HYDR-3816 PO ×2 (15:42)
[2019-06-27] MEDS ORDERED: LOPE-134 PO (15:42)
[2019-06-27] MEDS ORDERED: CETI10TA17 PO (15:42)
--- NOTE | 2019-06-27 15:42 | NUR ---
DR JACOBSON NOTIFIED OF NA 122, AND PATIENTS C/O NO BM FOR SEVERAL DAYS, ORDERED TO GIVE [id number] GM BID, LACTULOSE 30ML TIMES ONE, NS AT 100ML HOURS AND TO CHANGE TO INPATIENT STATUS WITH HYPONATREMIA
[2019-06-27] MEDS ORDERED: L.AC1CAP6 PO (15:52)
--- NOTE | 2019-06-27 15:55 | NUR ---
UPDATED MED REC WITH MAR FROM [facility]
[2019-06-27] MEDS ORDERED: LACTULOSE SYRUP 10GM/15ML (ENULOSE) 30ML UDC PO NR (16:00)
[2019-06-27 16:05] VITALS: BP 139/76
[2019-06-27] MEDS: NS IV 1000 ML 1,000 ML IV SCH (16:24)
[2019-06-27] MEDS: fentaNYL INJECTION 100 MCG/2 ML AMP IV PRN ×2 (16:56→21:12)
[2019-06-27] MEDS: HYDROcodone/APAP 5 MG/325 MG (LORTAB) TAB PO PRN (18:11)
--- NOTE | 2019-06-27 19:42 | History & Physicial ---
History of Present Illness History of Present Illness Reason for visit/HPI PT IS AN 88 Y/O FEMALE WHO IS WELL KNOWN TO ME FROM CLINIC. SHE PRESENTED TO THE EMERGENCY DEPARTMENT WITH PELVIC/HIP PAIN STATUS POST FALL AT HER ASSISTED LIVING FACILITY - [facility]. PER THE PATIENT'S DTR - THE PT WAS GETTING UP IN THE MIDDLE OF THE NIGHT - WAS FOUND DOWN ON THE FLOOR BY [facility] STAFF AROUND 3-4 AM - THEY ASSISTED HER FROM THE FLOOR TO THE RESTROOM AND THEN BACK TO BED. THE PT WAS HAVING SOME PAIN, BUT NOT EXTREME - THEY RE-CHECKED ON HER A LITTLE LATER AND SHE WAS HAVING MORE DISCOMFORT SO THEY CALLED HER SON FOR DIRECTION TO THEIR DESIRE FOR HER TO GO TO THE HOSPITAL OR TO CONTINUE TO WATCH HER AT THE FACILITY. APPARENTLY THEY DECIDED ON ER EVALUATION SO SHE WAS TRANSPORTED TO THE HOSPITAL. AFTER XRAYS AND CT SCAN, IT WAS DETERMINED THAT SHE HAD A PELVIC FRACTURE. THE PT WAS THEN TRANSPORTED TO THE FLOOR UNDER OBSERVATION - BUT AFTER FINDING OUT THAT SHE WAS HYPONATREMIC - I ASKED THE NURSING STAFF TO START FLUIDS AND MAKE HER INPATIENT STATUS. Date of Admission Jun 27, 2019 at 16:00 Date Seen by a Provider: Jun 27, 2019 Time Seen by a Provider: 19:20 I consulted on this patient on 06/27/19 19:20 Attending Physician Fawad Graham MD Admitting Physician Fawad Graham MD Consult TRICIA DUNLAP DO Allergies and Home Medications Allergies Coded Allergies: aspirin (Verified Allergy, Unknown, 02/11/16) codeine (Verified Adverse Reaction, Unknown, N/V, 08/29/15) losartan (Unverified Adverse Reaction, Unknown, DIZZINESS, 08/29/15) Home Medications Boeez-K-Lzuiyozqddqcm 150 Unit Tablet, 150 UNIT PO TIDWM, (Reported) Alprazolam 0.25 Mg Tablet, 0.25 MG PO 0600,1200, (Reported) Alprazolam 0.25 Mg Tablet, 0.25 MG PO Q6H PRN for ANXIETY, (Reported) Amlodipine Besylate 5 Mg Tablet, 5 MG PO DAILY, (Reported) Calcium Carbonate 300 Mg Tab.chew, 2 TAB.CHEW PO QID PRN for INDIGESTION, (Reported) Carvedilol 6.25 Mg Tablet, 6.25 MG PO BID, (Reported) HOLD FOR SBP<110 OR PULSE <60 Cetirizine HCl 10 Mg Tablet, 10 MG PO DAILY, (Reported) Diclofenac Sodium 100 Gm Gel..gram., 2 GM TOP BID, (Reported) Diphenhydramine HCl 25 Mg Tablet, 12.5 MG PO BID PRN for ITCHING, (Reported) Docusate Sodium 100 Mg Capsule, 100 MG PO DAILY PRN for CONSTIPATION-1ST LINE, (Reported) Duloxetine HCl 20 Mg Capsule.dr, 20 MG PO BID, (Reported) Furosemide 20 Mg Tablet, 20 MG PO DAILY, (Reported) Hydrocodone/Acetaminophen 1 Each Tablet, 1 TAB PO 0800,2000, (Reported) Hydrocodone/Acetaminophen 1 Each Tablet, 1 TAB PO Q6H PRN for PAIN-MODERATE, (Reported) Ibuprofen 200 Mg Tablet, 600 MG PO Q6H PRN for PAIN-MILD, (Reported) L.acidoph & Paracasei,B.lactis 1 Each Capsule, 1 CAP PO 1200, (Reported) Levothyroxine Sodium 50 Mcg Tablet, 50 MCG PO DAILY, (Reported) Lisinopril 10 Mg Tablet, 10 MG PO BID, (Reported) Loperamide HCl 2 Mg Tablet, PO UD PRN for LOOSE STOOLS, (Reported) TAKE 2 TABLETS AFTER 1ST LOOSE STOOL THEN 1 TABLET AFTER EACH LOOSE STOOL. NOT TO EXCEED 4 TABS IN 24 HOURS Magnesium Hydroxide 400 Mg/5 Ml Oral.susp, 15 ML PO DAILY PRN for REFLUX, (Reported) Melatonin 5 Mg Capsule, 5 MG PO HS, (Reported) Polyethylene Glycol 3350 17 Gm Powd.pack, 17 GM PO DAILY PRN for CONSTIPATION- 2ND LINE, (Reported) Potassium Chloride 10 Meq Tablet.er, 10 MEQ PO DAILY, (Reported) Ranitidine HCl 150 Mg Tablet, 150 MG PO BID, (Reported) Simethicone 180 Mg Capsule, 180 MG PO QID PRN for GAS, (Reported) Triamcinolone Acet 15 Gm Cr, TOP Q48H, (Reported) Triamcinolone Acet 15 Gm Cr, TP DAILY PRN for ITCHING, (Reported) Patient Home Medication List Home Medication List Reviewed: Yes Past Pxdhbid-Tpmjdq-Oimhzr Hx Patient Social History Marrital Status: Living Status: LIVES AT [facility] ASSISTED [facility]IV[facility] Employed/Student: retired Alcohol Use: Denies Use Recreational Drug Use: No Smoking Status: Never a Smoker 2nd Hand Smoke Exposure: No Physical Abuse Screen: No Sexual Abuse: No Recent Foreign Travel: No Contact w/other who traveled: No Recent Hopitalizations: No Recent Infectious Disease Expo: No Immunizations Up To Date Tetanus Booster (TDap): Unknown Pediatric: No Date of Pneumonia Vaccine: Aug 14, 2010 Date of Influenza Vaccine: Aug 14, 2014 Seasonal Allergies Seasonal Allergies: Yes Surgeries Yes (BOWEL RESECTION, CATARACTS REMOVED) Abdominal, Appendectomy, Eye Surgery, Hysterectomy, Oophorectomy, Tonsillectomy Respiratory Yes ( A CHILD) Currently Using CPAP: No Currently Using BIPAP: No Cardiovascular Yes Hypertension Neurological Yes (NUMBNESS IN FEET AND HANDS ) Reproductive System Hx Reproductive Disorders: Yes Sexually Transmitted Disease: No HIV/AIDS: No Female Reproductive Disorders: Endometriosis LONG TERM CARE ADMINISTRATOR History: Hysterectomy, Menopausal Genitourinary No Gastrointestinal Yes (COLON RESECTION FOR OBSTRUCTION) Obstructive Bowel, Chronic Constipation, Diverticulosis, Irritable Bowel Musculoskeletal Yes (RIGHT HIP FRACTURE) Arthritis Endocrine History of Endocrine Disorders: Yes Endocrine Disorders: Hypothyroidsim HEENT HEENT Disorders: Cataract Loss of Vision: Denies Hearing Impairment: Denies Cancer No Psychosocial History of Psychiatric Problem: Yes Behavioral Health Disorders: Anxiety, Depression Integumentary History of Skin or Integumenta: No Blood Transfusions History of Blood Disorders: No Adverse Reaction to a Blood Tr: No Reviewed Nursing Assessment Reviewed/Agree w Nursing PMH: Yes Family Medical History Significant Family History: Heart Disease, Cancer, Hypertension Family Hx: Alcoholism 03 FATHER, 09 BROTHER, 09 BROTHER, Cancer 09 BROTHER, 09 BROTHER, Cataract 09 SISTER Family history: Arthritis 09 SISTER 09 SISTER, 09 SISTER, Family history: Breast disease 09 SISTER Family history: Cardiovascular disease 09 SISTER Family history: Glaucoma 09 SISTER, Family history: Hypertension 03 FATHER, 03 MOTHER, 09 BROTHER, 09 BROTHER, 09 SISTER 09 SISTER, Family history: Osteoporosis 09 SISTER 09 SISTER, 09 SISTER, Headache 03 MOTHER, Heart disease 09 SISTER Tuberculosis 09 BROTHER, Visual impairment 09 SISTER No Family History of: Abdominal aortic aneurysm Cancer of colon Chest pain Congenital heart disease Congestive heart failure Cystic fibrosis Dementia Dysphagia Family history: Allergy Family history: Alzheimer's disease Family history: Asthma Family history: Coronary thrombosis Family history: Diabetes mellitus Family history: Gastrointestinal disease Family history: Thyroid disorder Hearing loss Hereditary disease History of - anemia History of - disorder History of - respiratory disease History of drug abuse Human immunodeficiency virus (HIV) seropositivity Hypercholesterolemia Infertile Kidney disease Malignant neoplasm of lung Myocardial infarction Parkinson's disease Prostate cancer Psychotic disorder Seizure disorder Stroke Review of Systems Constitutional: No chills, No fever; malaise, weakness EENTM: No hoarseness, No throat pain Respiratory: No cough, No dyspnea on exertion, No short of breath Cardiovascular: No chest pain, No palpitations Gastrointestinal: abdominal pain, constipation; No nausea, No vomiting Genitourinary: no symptoms reported Musculoskeletal: back pain, other (RIGHT HIP/PELVIC PAIN) Skin: other (ABRASION RIGHT LOWER LEG AT ANKLE) Psychiatric/Neurological: Anxiety, Depressed, Weakness All Other Systems Reviewed Negative Unless Noted: Yes Physical Exam Vital Signs Vital Signs - First Documented 06/27/19 07:48 Temp 96.5 Pulse 66 Resp 16 B/P (MAP) 141/77 (98) Pulse Ox 89 O2 Delivery Nasal Cannula O2 Flow Rate 2.00 Capillary Refill : Less Than 3 SecondsLess Than 3 Seconds Height, Weight, BMI Height: 5'3.00" Weight: 108lbs. 7.0oz. [id number]; 19.2 BMI Method:Stated General Appearance: No Apparent Distress, WD/WN, Thin Eyes: Bilateral Eye Normal Inspection, Bilateral Eye PERRL, Bilateral Eye EOMI HEENT: PERRL/EOMI, Pharynx Normal Neck: Full Range of Motion, Normal Inspection, Non Tender, Supple Respiratory: Chest Non Tender, Lungs Clear, Normal Breath Sounds, No Accessory Muscle Use Cardiovascular: Regular Rate, Rhythm, No Edema, Normal Peripheral Pulses Gastrointestinal: Normal Bowel Sounds, Non Tender, Soft Rectal: Deferred Back: Normal Inspection, Other (KYPHOSIS) Extremity: No Pedal Edema Neurologic/Psychiatric: Alert, Oriented x3, Normal Mood/Affect, cap coverer II-XII Norm as Tested Skin: Normal Color, Warm/Dry Lymphatic: No Adenopathy Assessment/Plan Assessment and Plan HYPONATREMIA PELVIC FRACTURE - RIGHT SACRAL ALA AND SUPERIOR AND INFERIOR RAMI HYPERTENSION MEMORY LOSS GENERALIZED WEAKNESS HYPOTHYROID CONSTIPATION CHRONIC GASEOUS DISTENTION GERD CHRONIC PRURITUS CHRONIC ANXIETY CHRONIC DEPRESSION HYPONATREMIA - STARTED IV FLUIDS AFTER PT TO THE FLOOR - NORMAL SALINE AT 100ML/HR - MONITOR ELECTROLYTES TOMORROW AND CLOSELY MONITOR PULMONARY STATUS. HOLD DIURETICS AT THIS TIME. PELVIC FRACTURE - RIGHT SACRAL ALA, RIGHT INFERIOR PUBIC RAMUS AND RIGHT SUPERIOR PUBIC RAMUS - NO SURGICAL TREATMENT INDICATED FOR THIS FRACTURE -SHE WILL NEED TO HEAL BY SECONDARY INTENTION - AND WILL NEED THERAPY FOR CONTINUED STRENGTHENING. Date of Exam: 06/27/19 CT PELVIS WO PROCEDURE: CT pelvis without contrast. INDICATION: Fall and pelvic pain. There appears to be a fracture of the right sacral ala. The left sacral ala is intact. SI joints are not widened. There is also an acute fracture of the right inferior pubic ramus. There is cortical irregularity and probable fracture involving the right superior pubic ramus near the junction with the anterior column of the right acetabulum. The left superior and inferior pubic rami are intact. Femoral acetabular alignment is normal bilaterally. Postsurgical changes of the right hip are seen. No free fluid in the pelvis is identified. No hematoma is identified. IMPRESSION: Right-sided pelvic fractures, as described. HYPERTENSION - RESUME HOME REGIMEN - MONITOR PRESSURES CLOSELY - SHE HAS EXTENSIVE HISTORY OF HYPERTENSIVE URGENCY. MEMORY LOSS - SUPPORTIVE CARE ONLY AT THIS TIME. GENERALIZED WEAKNESS - - WOULD BENEFIT FROM THERAPY IN THE HOSPITAL IF HER INSURANCE WILL APPROVE OF THE STAY. HYPOTHYROID - RESUME LEVOTHYROXINE. CONSTIPATION - CHRONIC - DUE TO OPIODS AND DECREASED ACTIVITY - START RELISTOR INJECTIONS, CONTINUE WITH DULCOLAX, MIRALAX, PT DID NOT HAVE RESULTS FROM LACTULOSE. CHRONIC GASEOUS DISTENTION - CONTINUE WITH BEANO AND GAS-EX GERD - CONTINUE WITH CURRENT HOME REGIMEN. CHRONIC PRURITUS - PRN TRIAMCINOLONE CHRONIC ANXIETY AND CHRONIC DEPRESSION - RESTARTED HOME REGIMEN - ALPRAZOLAM AND CYMBALTA WAITING ON INPT REHAB TO REPORT IF SHE HAS BEEN ACCEPTED PENDING HER INSURANCE DECISION - IF NOT WE WILL HAVE TO LOOK AT [facility] [place] FOR THERAPY. Admission Diagnosis HYPONATREMIA PELVIC FRACTURE - RIGHT SACRAL ALA AND SUPERIOR AND INFERIOR RAMI HYPERTENSION MEMORY LOSS GENERALIZED WEAKNESS HYPOTHYROID CONSTIPATION CHRONIC GASEOUS DISTENTION GERD CHRONIC PRURITUS CHRONIC ANXIETY CHRONIC DEPRESSION Admission Status: Inpatient Order (span 2 midnights) Reason for Inpatient Admission: PT HAS PELVIC FRACTURE AND IS HYPONATREMIC - IT WILL TAKE AT LEAST 48- 72 HOURS FOR STABILIZATION WITH GENTLE IV HYDRATION (TO PREVENT FLUID OVERLOAD WITH RAPID IV FLUIDS) TO GET HER SODIUM LEVEL CLOSER TO NORMAL RANGE. Clinical Quality Measures DVT/VTE Risk/Contraindication: Risk Factor Score Per Nursin RFS Level Per Nursing on Admit: 4+=Very High FAWAD GRAHAM MD Jun 27, 2019 19:42
[2019-06-27] MEDS ORDERED: SIMETHICONE 180 MG PO PRN (19:45)
[2019-06-27] MEDS ORDERED: IBUPROFEN 600 MG PO PRN (19:45)
[2019-06-27] MEDS ORDERED: TRIAMCINOLONE 0.1% CR (KENALOG) 15 GM TUBE TP PRN (19:45)
[2019-06-27] MEDS ORDERED: DOCUSATE SODIUM 100 MG (COLACE) CAP PO PRN (19:45)
[2019-06-27] MEDS ORDERED: CALCIUM CARBONATE PO PRN (19:45)
[2019-06-27 20:00] VITALS: BP 115/71
[2019-06-27] MEDS ORDERED: METHYLNALTREXONE 12 MG/0.6 ML (RELISTOR) VIAL SQ NR (20:00)
[2019-06-27] MEDS ORDERED: DICLOFENAC 1% GEL 100 GM (VOLTAREN) TUBE TOP SCH (21:00)
[2019-06-27] MEDS ORDERED: NON-FORMULARY MEDICATION 1 EA EA (Ranitidine HCl 150 MG) PO SCH (21:00)
[2019-06-27] MEDS ORDERED: NON-FORMULARY MEDICATION 1 EA EA (Melatonin 5 MG) PO SCH (21:00)
[2019-06-27] MEDS ORDERED: DICLOFENAC SODIUM 2 GM TOP SCH (21:00)
[2019-06-27] MEDS: DULoxetine 20 MG (CYMBALTA) CAP PO SCH (21:12)
[2019-06-27] MEDS: POLYETHYLENE GLYCOL 17 GM (MIRALAX) PACK PO SCH (21:12)
[2019-06-27] MEDS: CARVEDILOL 6.25 MG (COREG) TAB PO SCH (21:13)
[2019-06-27] MEDS: lisINopril 10 MG (PRINIVIL) TABLET PO SCH (21:13)
[2019-06-27] MEDS: FAMOTIDINE 20 MG (PEPCID) TABLET PO SCH (21:13)
[2019-06-27] MEDS: MELATONIN 3 MG TABLET PO SCH (21:13)
[2019-06-27] MEDS ORDERED: CALCIUM CARBONATE 500 MG (TUMS) TAB.CHEW PO PRN (21:45)
[2019-06-27] MEDS ORDERED: SIMETHICONE 80 MG (MYLICON) CHEW PO PRN (21:45)
[2019-06-27] MEDS ORDERED: IBUPROFEN 600 MG (MOTRIN) TAB PO PRN (21:45)
[2019-06-27] MEDS: CATHETER FLUSH 10 ML SYR IV SCH (22:08)
[2019-06-28 00:01] VITALS: BP 118/77
[2019-06-28] MEDS: NS IV 1000 ML 1,000 ML IV SCH ×3 (02:20→22:37)
--- NOTE | 2019-06-28 03:08 | NUR ---
SCDs REMOVED PER PT'S REQUEST.
[2019-06-28] MEDS: fentaNYL INJECTION 100 MCG/2 ML AMP IV PRN (03:12)
--- NOTE | 2019-06-28 04:26 | NUR ---
MECHANICAL DESIGN ENGINEER HERE TO DRAW BLOOD. PT REFUSING BLOOD DRAW.
[2019-06-28 04:38] VITALS: BP 112/69
[2019-06-28] MEDS: ALPRAZolam 0.25 MG (XANAX) TAB PO SCH ×2 (05:33→09:13)
[2019-06-28 05:51] LABS: HEMOGLOBIN 9.3 G/DL (11.5-16.0); MEAN PLATELET VOLUME 9.3 FL (7.4-10.4); WHITE BLOOD COUNT 5.8 10^3/uL (4.3-11.0)
[2019-06-28] MEDS: CATHETER FLUSH 10 ML SYR IV SCH ×3 (06:13→22:20)
[2019-06-28] MEDS: ALPHA D GALACTOSIDASE 150 UNIT PO SCH ×3 (06:14→13:53)
[2019-06-28 06:22] LABS: ALANINE AMINOTRANSFERASE 13 U/L (0-55); ALBUMIN 3.3 GM/DL (3.2-4.5); ALKALINE PHOSPHATASE 70 U/L (40-136); BILIRUBIN,TOTAL 0.7 MG/DL (0.1-1.0); BUN/CREATININE RATIO 10; CALCIUM 8.2 MG/DL (8.5-10.1); CARBON DIOXIDE 18 MMOL/L (21-32); CHLORIDE 102 MMOL/L (98-107); CREATININE SERUM 0.84 MG/DL (0.60-1.30); GFR ESTIMATED > 60; GLUCOSE 92 MG/DL (70-105); POTASSIUM 4.1 MMOL/L (3.6-5.0); SODIUM 128 MMOL/L (135-145); TOTAL PROTEIN 5.4 GM/DL (6.4-8.2)
[2019-06-28 07:40] VITALS: BP 150/70
--- NOTE | 2019-06-28 08:23 | Progress Note ---
Subjective Date Seen by a Provider: Jun 28, 2019 Time Seen by a Provider: 08:20 Subjective/Events-last exam PT REPORTS THAT SHE DID HAVE A GOOD BOWEL MOVEMENT YESTERDAY - HER DTR REPORTS THAT THE RELISTOR WORKED ALMOST IMMEDIATELY. PT REPORTS FOOT PAIN AND SOME BACK/HIP PAIN - BUT THE FIRST THING SHE COMPLAINED ABOUT WERE HER FEET THIS MORNING. SHE DENIES DIZZINESS, CHEST PAIN, DOES HAVE SOME MILD SHORTNESS OF BREATH. Review of Systems General: Fatigue HEENT: No Head Aches Pulmonary: No Dyspnea, No Cough Cardiovascular: No: Chest Pain, Palpitations Gastrointestinal: No: Nausea, Abdominal Pain, Diarrhea, Constipation Genitourinary: Other (BOWERS IN PLACE) Musculoskeletal: back pain, leg pain, foot pain Neurological: Weakness; No: Confusion Objective Exam Last Set of Vital Signs Vital Signs Date Time Temp Pulse Resp B/P (MAP) Pulse Ox O2 Delivery O2 Flow Rate FiO2 06/28/19 07:40 98.9 66 17 150/70 (96) 94 Nasal Cannula 1.50 Capillary Refill : Less Than 3 SecondsLess Than 3 Seconds I&O Intake and Output 06/28/19 00:00 Intake Total 1320 ml Output Total 1825 ml Balance -505 ml Intake Oral 320 ml IV Total 1000 ml Output Urine Total 1825 ml Daily Weight Change No No General: Alert, Oriented X3, Cooperative, No Acute Distress HEENT: Atraumatic, PERRLA, Mucous Memb Moist/[place] Neck: Supple Lungs: Clear to Auscultation, Normal Air Movement Heart: Regular Rate Abdomen: Normal Bowel Sounds, Soft, No Tenderness Extremities: No Clubbing Skin: No Rashes Neuro: Cranial Nerves 3-12 NL Psych/Mental Status: Mental Status NL, Mood NL Results Lab Laboratory Tests 06/28/19 05:43: White Blood Count 5.8, Red Blood Count 3.00L, Hemoglobin 9.3#L, Hematocrit 28L, Mean Corpuscular Volume 92, Mean Corpuscular Hemoglobin 31, Mean Corpuscular Hemoglobin Concent 34, Red Cell Distribution Width 13.0, Platelet Count 137, Mean Platelet Volume 9.3, Sodium Level 128L, Potassium Level 4.1, Chloride Level 102, Carbon Dioxide Level 18L, Anion Gap 8, Blood Urea Nitrogen 8, Creatinine 0.84, Estimat Glomerular Filtration Rate > 60, BUN/Creatinine Ratio 10, Glucose Level 92, Calcium Level 8.2L, Corrected Calcium 8.8, Magnesium Level 2.0, Total Bilirubin 0.7, Aspartate Amino Transf (AST/SGOT) 20, Alanine Aminotransferase (ALT/SGPT) 13, Alkaline Phosphatase 70, Total Protein 5.4L, Albumin 3.3 Assessment/Plan Assessment/Plan Assess & Plan/Chief Complaint HYPONATREMIA PELVIC FRACTURE - RIGHT SACRAL ALA AND SUPERIOR AND INFERIOR RAMI HYPERTENSION MEMORY LOSS GENERALIZED WEAKNESS HYPOTHYROID CONSTIPATION CHRONIC GASEOUS DISTENTION GERD CHRONIC PRURITUS CHRONIC ANXIETY CHRONIC DEPRESSION HYPONATREMIA - STARTED IV FLUIDS AFTER PT TO THE FLOOR - NORMAL SALINE AT 100ML/HR - MONITOR ELECTROLYTES TOMORROW AND CLOSELY MONITOR PULMONARY STATUS. HOLD DIURETICS AT THIS TIME. PELVIC FRACTURE - RIGHT SACRAL ALA, RIGHT INFERIOR PUBIC RAMUS AND RIGHT SUPERIOR PUBIC RAMUS - NO SURGICAL TREATMENT INDICATED FOR THIS FRACTURE -SHE WILL NEED TO HEAL BY SECONDARY INTENTION - AND WILL NEED THERAPY FOR CONTINUED STRENGTHENING. - PT DID NOT PARTICIPATE IN THERAPY YESTERDAY WHEN SHE WAS UP FROM THE ER SHE WAS IN TOO MUCH PAIN PER HER REPORT. I HAVE INFORMED THE PT AND HER DTR THAT IF SHE DOES NOT OR CANNOT PARTICIPATE IN THERAPY IN THE HOSPITAL, SHE WILL NOT QUALIFY FOR INPT REHAB AND WE WILL THEREFORE HAVE TO LOOK AT [facility] FOR SKILLED THERAPY. Date of Exam: 06/27/19 CT PELVIS WO PROCEDURE: CT pelvis without contrast. INDICATION: Fall and pelvic pain. There appears to be a fracture of the right sacral ala. The left sacral ala is intact. SI joints are not widened. There is also an acute fracture of the right inferior pubic ramus. There is cortical irregularity and probable fracture involving the right superior pubic ramus near the junction with the anterior column of the right acetabulum. The left superior and inferior pubic rami are intact. Femoral acetabular alignment is normal bilaterally. Postsurgical changes of the right hip are seen. No free fluid in the pelvis is identified. No hematoma is identified. IMPRESSION: Right-sided pelvic fractures, as described. HYPERTENSION - RESUME HOME REGIMEN - MONITOR PRESSURES CLOSELY - SHE HAS EXTENSIVE HISTORY OF HYPERTENSIVE URGENCY. MEMORY LOSS - SUPPORTIVE CARE ONLY AT THIS TIME. GENERALIZED WEAKNESS - - WOULD BENEFIT FROM THERAPY IN THE HOSPITAL IF HER INSURANCE WILL APPROVE OF THE STAY. HYPOTHYROID - RESUME LEVOTHYROXINE. CONSTIPATION - CHRONIC - DUE TO OPIODS AND DECREASED ACTIVITY - STARTED RELISTOR - FIRST INJECTION LAST NIGHT - HELPED ALMOST IMMEDIATLY PER HER DTR'S REPORT - CONTINUE WITH RELISTOR INJECTIONS [id number] AND ALSO CONTINUE WITH DULCOLAX, MIRALAX. CHRONIC GASEOUS DISTENTION - CONTINUE WITH BEANO AND GAS-EX GERD - CONTINUE WITH CURRENT HOME REGIMEN. CHRONIC PRURITUS - PRN TRIAMCINOLONE CHRONIC ANXIETY AND CHRONIC DEPRESSION - RESTARTED HOME REGIMEN - ALPRAZOLAM AND CYMBALTA WAITING ON INPT REHAB TO REPORT IF SHE HAS BEEN ACCEPTED PENDING HER INSURANCE DECISION - IF NOT WE WILL HAVE TO LOOK AT [facility] FOR THERAPY. Clinical Quality Measures Admission Status Admission Dx HYPONATREMIA PELVIC FRACTURE - RIGHT SACRAL ALA AND SUPERIOR AND INFERIOR RAMI HYPERTENSION MEMORY LOSS GENERALIZED WEAKNESS HYPOTHYROID CONSTIPATION CHRONIC GASEOUS DISTENTION GERD CHRONIC PRURITUS CHRONIC ANXIETY CHRONIC DEPRESSION DVT/VTE Risk/Contraindication: Risk Factor Score Per Nursin RFS Level Per Nursing on Admit: 4+=Very High FAWAD JACOBSON MD Jun 28, 2019 08:23
[2019-06-28] MEDS ORDERED: NON-FORMULARY MEDICATION 1 EA EA (Cetirizine HCl 10 MG) PO SCH (09:00)
[2019-06-28] MEDS ORDERED: NON-FORMULARY MEDICATION 1 EA EA (Amlodipine Besylate 5 MG) PO SCH (09:00)
[2019-06-28] MEDS: LEVOTHYROXINE 50 MCG (LEVOTHROID) TAB PO SCH (09:12)
[2019-06-28] MEDS: lisINopril 10 MG (PRINIVIL) TABLET PO SCH ×2 (09:13→21:01)
[2019-06-28] MEDS: LORATADINE (CLARITIN) 10 MG TAB PO SCH (09:13)
[2019-06-28] MEDS: amLODIPine 5 MG (NORVASC) TAB PO SCH (09:13)
[2019-06-28] MEDS: POLYETHYLENE GLYCOL 17 GM (MIRALAX) PACK PO SCH ×2 (09:14→21:02)
[2019-06-28] MEDS: DICLOFENAC 1% GEL 100 GM (VOLTAREN) TUBE TOP SCH ×3 (09:14→21:11)
[2019-06-28] MEDS: CARVEDILOL 6.25 MG (COREG) TAB PO SCH ×2 (09:20→21:18)
[2019-06-28] MEDS: DULoxetine 20 MG (CYMBALTA) CAP PO SCH ×2 (09:20→21:01)
[2019-06-28] MEDS: ACETAMINOPHEN 325 MG TABLET PO PRN ×2 (09:21→17:20)
--- NOTE | 2019-06-28 09:56 | Physical Therapy Evaluation ---
PT Evaluation-General Medical Diagnosis Admission Date Jun 27, 2019 at 16:00 Medical Diagnosis: fall/pelvic fracture Onset Date: Jun 27, 2019 Therapy Diagnosis Therapy Diagnosis: generalized weakness and debility Height/Weight Height (Feet): 5 Height (Inches): 3.00 Weight (Pounds): 108 Weight (Ounces): 7.0 Precautions Precautions/Isolations: Fall Prevention Weight Bear Status Right Lower Extremity: Right Weight Bearing/Tolerated Left Lower Extremity: Left Weight Bearing/Tolerated pelvic fracture Referral Physician: Santos Reason for Referral: Evaluation/Treatment Medical History Pertinent Medical History: Arthritis, HTN, Hypothroidism Current History EMS to [place] secondary to fall. Patient does not recall falling when asked by this PT. Reviewed History: Yes Social History Home: Assisted Living Prior/[facility] Prior Level of Function Therapy Code Descriptions/Definitions Functional Green Measure: 0=Not Assessed/NA 4=Minimal Assistance 1=Total Assistance 5=Supervision or Setup 2=Maximal Assistance 6=Modified Green 3=Moderate Assistance 7=Complete Green Therapy Quality Codes: 6 Independent with activity with or without an assistive device 5 Patient requires set up or clean up by helper. Patient completes activity by themselves 4 Supervision or touching assist (CGA). Ferguson provide cues , steadying assist 3 The helper provides less than half the effort to complete the activity 2 The helper provides more than half the effort to complete the activity 1 Dependent. The helper does all the effort to complete an activity 7 Patient refused to complete or attempt activity 9 The patient did not perform the activity before the current illness or injury 88 Not attempted due to Medical conditions or safety concerns Functional Abilities and Goals: Independent: Patient completed the activities by him/herself, with or without an assistive device, with no assistance from a helper. Needed Some Help: Patient needed partial assistance from another person to c omplete activities. Dependent: A helper completed the activities for the patient. Unknown: Not Applicable: Bed Mobility: 6 Transfers (B,C,W/C) (FIM): 6 Gait: 5 Indoor Mobility (Ambulation): Independent Prior Devices Use: Walker PT Evaluation-Current Subjective Patient states she does not remember falling. Reluctantly agrees to PT. Family present. Pain Numeric Pain Scale: 10-Worst Possible Pain Location: Right Location Body Site: Pelvic Pain Description: Acute Objective Patient Orientation: Confused Problem Solving: Poor Attachments: Oxygen, Roberto Catheter, IV ROM/Strength ROM Lower Extremities right LE internally rotated in supine and in seated position (family reports this is her normal); left LE WFL Strength Lower Extremities right LE 3-/5 grossly; left LE 3+/5 grossly Integumentary/Posture Integumentary refer to nursing notes Bladder Incontinence: Roberto Cath Posture kyphotic Neuromuscular (Tone, Coordination, Reflexes) diminished coordination due to pain right LE Sensory Vision: Functional Hearing: Impaired Sensation Right Lower Extremit: Intact Sensation Left Lower Extremity: Intact Transfers Therapy Code Descriptions/Definitions Functional Green Measure: 0=Not Assessed/NA 4=Minimal Assistance 1=Total Assistance 5=Supervision or Setup 2=Maximal Assistance 6=Modified Green 3=Moderate Assistance 7=Complete Green Transfers (B, C, W/C) (FIM): 1 Scootin Rollin Supine to/from Sit: 1 Sit to/from Stand: 1 patient is resistive with all movement due to pain. Patient has difficulty with weight bearing right LE to advance left LE due to pain. Gait Anticipated Mode of Locomotion: Both Balance Sitting Static: Fair Sitting Dynamic: Poor Standing Static: Poor Standing Dynamic: Poor Assessment/Needs 88 y.o. female, will benefit from skilled PT to address functional strength and mobility to improve current LOF to safely return to [place] at maximum LOF. From a PT standpoint, patient may require extended care due to pelvic fracture healing process and pain with mobility. Rehab Potential: Fair PT Short Term Goals Short Term Goals Time Frame: Jul 04, 2019 Transfers (B,C,W/C) (FIM): 3 Gait (FIM): 1 Distance (FIM): 1=up to 49 ft Gait Distance Comment: 15' Gait Level of Assist: 3 Gait Assistive Device: FWW PT [facility] Goals [facility] Goals PT [facility] Goals Time Frame: Jul 07, 2019 Transfers (B,C,W/C) (FIM): 5 Gait (FIM): 2 Gait distance (FIM): 3=072-45 ft Distance: 75' Gait Level of Assist: 4 Gait Assistive Device: FWW PT Plan Problem List Problem List: Activity Tolerance, Functional Strength, Safety, Balance, Gait, Transfer, Bed Mobility, ROM Treatment/Plan Treatment Plan: Continue Plan of Care Treatment Plan: Bed Mobility, Education, Functional Activity Carol, Functional Strength, Gait, Safety, Therapeutic Exercise, Transfers Treatment Duration: Jul 07, 2019 Frequency: 11 times per week Estimated Hrs Per Day: .5 hour per day Patient and/or Family Agrees t: Yes Safety Risks/Education Patient Education: Transfer Techniques, Safety Issues Teaching Recipient: Patient Teaching Methods: Demonstration Response to Teaching: Reinforcement Needed Time/GCodes Time In: 855 Time Out: 914 Total Billed Treatment Time: 19 Total Billed Treatment 1 visit EVModC 19 min TERRANCE STONE PT Jun 28, 2019 09:56
--- NOTE | 2019-06-28 10:40 | NUR ---
CM/FELIX, respond to consult. Patient resides at [facility] inside the building. Her overall goal would be to return there when able. Patient is being considered for IRF, admissions coord monitoring patient's ability to perform with therapies regarding unit criteria. Additionally, patient has Medicare replacement policy and prior auth would be required. Daughter Mariana Mcneal at bedside. Both understand the care plan has two potential paths, IRF vs community SNF. Patient has history of stay at [facility] after hip fracture approx 3 years ago and this is their choice agency if needed. Monitor for next steps, referral to [facility] if IRF is not appropriate. Addendum: 06/28/19 at 1045 by NANCY WASHINGTON DME: Patient has 4WW with seat/brakes as well as 3 canes. She tends to use the cane for ambulation but does take the 4WW in the a.m. to get coffee and then on outings where there is increased walking.
[2019-06-28 11:30] VITALS: BP 124/59
--- NOTE | 2019-06-28 11:58 | Physical Therapy Daily Note ---
PT Daily Note-Current Subjective Patient agrees to PT. She does report 9/10 right pelvic/hip pain. RN to issue pain medication Pain Numeric Pain Scale: 9 Location: Right Location Body Site: Pelvic Pain Description: Stabbing, Acute Mental Status Patient Orientation: Person, Time, Situation Attachments: Roberto Catheter, IV Transfers Therapy Code Descriptions/Definitions Functional [place] Measure: 0=Not Assessed/NA 4=Minimal Assistance 1=Total Assistance 5=Supervision or Setup 2=Maximal Assistance 6=Modified [place] 3=Moderate Assistance 7=Complete [place] Therapy Quality Codes: 6 Independent with activity with or without an assistive device 5 Patient requires set up or clean up by helper. Patient completes activity by themselves 4 Supervision or touching assist (CGA). [place] provide cues , steadying assist 3 The helper provides less than half the effort to complete the activity 2 The helper provides more than half the effort to complete the activity 1 Dependent. The helper does all the effort to complete an activity 7 Patient refused to complete or attempt activity 9 The patient did not perform the activity before the current illness or injury 88 Not attempted due to Medical conditions or safety concerns Transfers (B, C, W/C) (FIM): 2 Scootin Supine to/from Sit: 2 Sit to/from Stand: 2 Bed to/from Chair: 3 Weight Bearing Right Lower Extremity: Right Weight Bearing/Tolerated Left Lower Extremity: Left Weight Bearing/Tolerated pelvic fracture Gait Training Gait (FIM): 1 Distance (FIM): 1=up to 49 ft Distance: 15' Gait Level of Assist: 4 Gait Persons Needed: 1 Gait Assistive Device: FWW very slow, antalgic, step to gait sequence Assessment Patient is up in chair with family present. Patient tolerates minimal activity due to age, pain and overall fatigue. PT to increase activity as tolerated by patient. PT Short Term Goals Short Term Goals Time Frame: Jul 04, 2019 Transfers (B,C,W/C) (FIM): 3 Gait (FIM): 1 Distance (FIM): 1=up to 49 ft Gait Distance Comment: 15' Gait Level of Assist: 3 Gait Assistive Device: FWW PT Software Trainer Goals [facility] Goals PT Software Trainer Goals Time Frame: Jul 07, 2019 Transfers (B,C,W/C) (FIM): 5 Gait (FIM): 2 Gait distance (FIM): 7=466-00 ft Distance: 75' Gait Level of Assist: 4 Gait Assistive Device: FWW PT Plan Treatment/Plan Treatment Plan: Continue Plan of Care Treatment Plan: Bed Mobility, Education, Functional Activity Carol, Functional Strength, Gait, Safety, Therapeutic Exercise, Transfers Treatment Duration: Jul 07, 2019 Frequency: 11 times per week Estimated Hrs Per Day: .5 hour per day Patient and/or Family Agrees t: Yes Time/GCodes Time In: 1135 Time Out: 1149 Total Billed Treatment Time: 14 Total Billed Treatment 1 visit GT 14 min TERRANCE STONE PT Jun 28, 2019 11:58
[2019-06-28] MEDS ORDERED: NON-FORMULARY MEDICATION 1 EA EA (L.acidoph & Paracasei,B.lactis (Probiotic) 1 CAP) PO SCH (12:00)
--- NOTE | 2019-06-28 13:12 | Occupational Therapy Eval ---
OT Evaluation-General/PLF Medical Diagnosis Admission Date Jun 27, 2019 at 16:00 Medical Diagnosis: fall/pelvic fracture Onset Date: Jun 27, 2019 Therapy Diagnosis Therapy Diagnosis: Weakness Height/Weight Height (Feet): 5 Height (Inches): 3.00 Weight (Pounds): 108 Weight (Ounces): 7.0 Precautions Precautions/Isolations: Fall Prevention Safety Interventions: None Weight Bear Status Weight Bearing Restriction: Weight Bearing/Tolerated Referral Physician: Santos Referral Reason: Activity Tolerance, Self Care, Evaluation/Treatment, Strengthening/ROM Medical History Pertinent Medical History: Arthritis, GERD, HTN, Hypothroidism Additional Medical History Hyponatremia Current History Pt. fell and fx pelvis, right sacral and superior/inferior rami. Reviewed History: Yes Social History Home: Assisted Living Current Living Status: Entry Into Home: Level Entry ADL-Prior Level of Function Therapy Code Descriptions/Definitions Functional [place] Measure: 0=Not Assessed/NA 4=Minimal Assistance 1=Total Assistance 5=Supervision or Setup 2=Maximal Assistance 6=Modified [place] 3=Moderate Assistance 7=Complete [place] Therapy Quality Codes: 6 Independent with activity with or without an assistive device 5 Patient requires set up or clean up by helper. Patient completes activity by themselves 4 Supervision or touching assist (CGA). [place] provide cues , steadying assist 3 The helper provides less than half the effort to complete the activity 2 The helper provides more than half the effort to complete the activity 1 Dependent. The helper does all the effort to complete an activity 7 Patient refused to complete or attempt activity 9 The patient did not perform the activity before the current illness or injury 88 Not attempted due to Medical conditions or safety concerns Functional Abilities and Goals: Independent: Patient completed the activities by him/herself, with or without an assistive device, with no assistance from a helper. Needed Some Help: Patient needed partial assistance from another person to complete activities. Dependent: A helper completed the activities for the patient. Unknown: Not Applicable: ADL PLOF Comments Pt. states that she is able to bathe and dress herself. Self Care: Independent Functional Cognition: Unknown OT Current Status Subjective Pt. does not report pain level but grimaces with movement. Pt. has had pain meds. Appearance Pt. up on BSC with nursing assist when OT entered room. OT assisted after that. Mental Status/Objective Patient Orientation: Confused Pt. is slightly confused with conversation. States that she does not remember what happened. ADL-Treatment Therapy Code Descriptions/Definitions Functional [place] Measure: 0=Not Assessed/NA 4=Minimal Assistance 1=Total Assistance 5=Supervision or Setup 2=Maximal Assistance 6=Modified [place] 3=Moderate Assistance 7=Complete [place] Therapy Quality Codes: 6 Independent with activity with or without an assistive device 5 Patient requires set up or clean up by helper. Patient completes activity by themselves 4 Supervision or touching assist (CGA). [place] provide cues , steadying assist 3 The helper provides less than half the effort to complete the activity 2 The helper provides more than half the effort to complete the activity 1 Dependent. The helper does all the effort to complete an activity 7 Patient refused to complete or attempt activity 9 The patient did not perform the activity before the current illness or injury 88 Not attempted due to Medical conditions or safety concerns Bathing (FIM): 3 (Pt. unable to wash lower legs, feet, or to cleanse rear anaya area thoroughly.) Lower Body Dressing (FIM): 2 Toileting (FIM): 2 Transfers (B, C, W/C) (FIM): 2 (Max assist sit-stand. Mod assist and cues to transfer to bed. Max assist bed mobility. ) Toilet/Commode Transfer (FIM): 2 Education OT Patient Education: Correct positioning, Modified ADL techniques, Progress toward Goal/Update tx plan, Purpose of tx/functional activities, Reviewed precautions, Rehab process, Transfer techniques Teaching Recipient: Patient Teaching Methods: Demonstration, Discussion Response to Teaching: Verbalize Understanding, Return Demonstration OT Short Term Goals Short Term Goals Time Frame: Jul 05, 2019 Eating(FIM): 5 Grooming(FIM): 5 Bathing(FIM): 4 Upper Body Dressing(FIM): 5 Lower Body Dressing(FIM): 4 Toileting(FIM): 4 Transfers (B,C,W/C) (FIM): 4 Toilet/Commode Transfer(FIM): 4 Additional Short Term Goals: 1-Demonstrate ADL Tasks, 2-Verbalize Unde rstanding, 3-ImproveStrength/Carol 1=Demonstrate adherence to instructed precautions during ADL tasks. 2=Patient will verbalize/demonstrate understanding of assistive devices/modifications for ADL. 3=Patient will improve strength/tolerance for activity to enable patient to perform ADL's. OT Shelter Goals Shelter Goals Time Frame: Jul 12, 2019 Eating (FIM): 6 Grooming(FIM): 5 Bathing(FIM): 5 Upper Body Dressing(FIM): 6 Lower Body Dressing(FIM): 5 Toileting(FIM): 6 Transfers (B,C,W/C) (FIM): 6 Toilet/Commode Transfer(FIM): 6 Shower Transfer(FIM): 5 Additional Goals: 1-Demonstrate ADL Tasks, 2-Verbalize Understanding, 3-I mproveStrength/Carol 1=Demonstrate adherence to instructed precautions during ADL tasks. 2=Patient will verbalize/demonstrate understanding of assistive devices/modifications for ADL. 3=Patient will improve strength/tolerance for activity to enable patient to perform ADL's. OT Education/Plan Problem List/Assessment Assessment: Decreased Activ Tolerance, Dependent Transfers, Impaired Bed Mobility, Impaired Funct Balance, Impaired I ADL's, Impaired Self-Care Skills, Restricted Funct UE ROM Discharge Recommendations Plan/Recommendations: Continue POC Therapy D/C Recommendations: Acute Rehab Equpiment Recommendations-D/C: Hip Kit Treatment Plan/Plan of Care Treatment,Training & Education: Yes Patient would benefit from OT for education, treatment and training to promote independence in ADL's, mobility, safety and/or upper extremity function for ADL's. Plan of Care: ADL Retraining, Functional Mobility, UE Funct Exercise/Act Treatment Duration: Jul 12, 2019 Frequency: 5 times per week Estimated Hrs Per Day: .5 hour per day Agreement: Yes Rehab Potential: Good Time/GCodes Start Time: 09:30 Stop Time: 10:00 Total Time Billed (hr/min): 30 Billed Treatment Time 1, EVH x 15minutes, ADL x 15minutes WILMA ALCALA OT Jun 28, 2019 13:12
[2019-06-28] MEDS: LACTOBACILLUS ACIDOPHILUS (PROBIOTIC) CAPSULE PO SCH (13:51)
[2019-06-28] MEDS: HYDROcodone/APAP 10 MG/325 MG (LORTAB) TAB PO PRN (13:54)
--- NOTE | 2019-06-28 14:14 | NUR ---
Initial visit with the pt's daughter. The pt is Muslim by affiliation. No mormonism community at this time. 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
[2019-06-28 15:52] VITALS: BP 126/59
[2019-06-28 19:47] VITALS: BP 108/55
[2019-06-28] MEDS: MELATONIN 3 MG TABLET PO SCH (21:01)
[2019-06-28] MEDS: HYDROcodone/APAP 5 MG/325 MG (LORTAB) TAB PO PRN (21:02)
[2019-06-28] MEDS: FAMOTIDINE 20 MG (PEPCID) TABLET PO SCH (21:14)
[2019-06-29 00:47] VITALS: BP 156/74
[2019-06-29] MEDS: fentaNYL INJECTION 100 MCG/2 ML AMP IV PRN (01:36)
[2019-06-29] MEDS: ALPRAZolam 0.25 MG (XANAX) TAB PO SCH ×2 (05:05→11:26)
[2019-06-29] MEDS: HYDROcodone/APAP 10 MG/325 MG (LORTAB) TAB PO PRN ×3 (05:05→20:31)
[2019-06-29] MEDS: CATHETER FLUSH 10 ML SYR IV SCH ×3 (05:29→22:40)
[2019-06-29 06:07] LABS: HEMOGLOBIN 10.1 G/DL (11.5-16.0); MEAN PLATELET VOLUME 9.8 FL (7.4-10.4); RED CELL DISTRIBUTION WIDTH 12.8 % (10.0-14.5); WHITE BLOOD COUNT 7.8 10^3/uL (4.3-11.0)
[2019-06-29 06:32] LABS: BUN/CREATININE RATIO 8; CALCIUM 8.7 MG/DL (8.5-10.1); CARBON DIOXIDE 20 MMOL/L (21-32); CHLORIDE 100 MMOL/L (98-107); CREATININE SERUM 0.74 MG/DL (0.60-1.30); GFR ESTIMATED > 60; GLUCOSE 97 MG/DL (70-105); POTASSIUM 3.6 MMOL/L (3.6-5.0); SODIUM 129 MMOL/L (135-145)
--- NOTE | 2019-06-29 07:35 | Progress Note ---
Subjective Date Seen by a Provider: Jun 29, 2019 Time Seen by a Provider: 07:30 Subjective/Events-last exam PT REPORTS THAT SHE IS STILL HAVING QUITE A BIT OF PAIN IN HER LOW BACK/PELVIC REGION. SHE ALSO COMPLAINS ABOUT TENDERNESS OF HER ABDOMEN - SHE STATES THAT SHE FEELS BLOATED. SHE NOTES THAT SHE DID HAVE A SMALL BOWEL MOVEMENT YESTERDAY EVENING. SHE DENIES CHEST PAIN, SHORTNESS OF BREATH, NAUSEA. Review of Systems General: Fatigue HEENT: No Head Aches, No Dysphasia Pulmonary: No Dyspnea, No Cough Cardiovascular: No: Chest Pain, Edema Gastrointestinal: Abdominal Pain; No: Nausea Musculoskeletal: back pain, leg pain Neurological: Weakness; No: Confusion Objective Exam Last Set of Vital Signs Vital Signs Date Time Temp Pulse Resp B/P (MAP) Pulse Ox O2 Delivery O2 Flow Rate FiO2 06/29/19 00:47 97.5 77 18 156/74 (101) 94 Nasal Cannula 1.50 Capillary Refill : Less Than 3 SecondsLess Than 3 Seconds I&O Intake and Output 06/29/19 00:00 Intake Total 1790 ml Output Total 2500 ml Balance -710 ml Intake Oral 1790 ml Output Urine Total 2500 ml General: Alert, Oriented X3, Cooperative, No Acute Distress HEENT: Atraumatic, PERRLA Neck: Supple Lungs: Clear to Auscultation, Normal Air Movement Heart: Regular Rate Abdomen: Normal Bowel Sounds, Soft, Other (TTP OVER EPIGASTRIUM WITH TYMPANIC OVER EPIGASTRIUM) Neuro: Normal Speech, Cranial Nerves 3-12 NL Psych/Mental Status: Mental Status NL, Mood NL Results Lab Laboratory Tests 06/29/19 05:00: Sodium Level 129L, Potassium Level 3.6, Chloride Level 100, Carbon Dioxide Level 20L, Anion Gap 9, Blood Urea Nitrogen 6L, Creatinine 0.74, Estimat Glomerular Filtration Rate > 60, BUN/Creatinine Ratio 8, Glucose Level 97, Calcium Level 8.7 06/29/19 05:25: White Blood Count 7.8, Red Blood Count 3.25L, Hemoglobin 10.1L, Hematocrit 30L, Mean Corpuscular Volume 91, Mean Corpuscular Hemoglobin 31, Mean Corpuscular Hemoglobin Concent 34, Red Cell Distribution Width 12.8, Platelet Count 147, Mean Platelet Volume 9.8 Assessment/Plan Assessment/Plan Assess & Plan/Chief Complaint HYPONATREMIA PELVIC FRACTURE - RIGHT SACRAL ALA AND SUPERIOR AND INFERIOR RAMI HYPERTENSION IRON DEFICIENCY ANEMIA MEMORY LOSS GENERALIZED WEAKNESS HYPOTHYROID CONSTIPATION CHRONIC GASEOUS DISTENTION GERD CHRONIC PRURITUS CHRONIC ANXIETY CHRONIC DEPRESSION HYPONATREMIA - STARTED IV FLUIDS AFTER PT TO THE FLOOR - NORMAL SALINE AT 100ML/HR - MONITOR ELECTROLYTES TOMORROW AND CLOSELY MONITOR PULMONARY STATUS. HOLD DIURETICS AT THIS TIME. PELVIC FRACTURE - RIGHT SACRAL ALA, RIGHT INFERIOR PUBIC RAMUS AND RIGHT SUPERIOR PUBIC RAMUS - NO SURGICAL TREATMENT INDICATED FOR THIS FRACTURE -SHE WILL NEED TO HEAL BY SECONDARY INTENTION - AND WILL NEED THERAPY FOR CONTINUED STRENGTHENING. - PT DID NOT PARTICIPATE IN THERAPY YESTERDAY WHEN SHE WAS UP FROM THE ER SHE WAS IN TOO MUCH PAIN PER HER REPORT. I HAVE INFORMED THE PT AND HER DTR THAT IF SHE DOES NOT OR CANNOT PARTICIPATE IN THERAPY IN THE HOSPITAL, SHE WILL NOT QUALIFY FOR INPT REHAB AND WE WILL THEREFORE HAVE TO LOOK AT [facility] FOR SKILLED THERAPY. Date of Exam: 06/27/19 CT PELVIS WO PROCEDURE: CT pelvis without contrast. INDICATION: Fall and pelvic pain. There appears to be a fracture of the right sacral ala. The left sacral ala is intact. SI joints are not widened. There is also an acute fracture of the right inferior pubic ramus. There is cortical irregularity and probable fracture involving the right superior pubic ramus near the junction with the anterior column of the right acetabulum. The left superior and inferior pubic rami are intact. Femoral acetabular alignment is normal bilaterally. Postsurgical changes of the right hip are seen. No free fluid in the pelvis is identified. No hematoma is identified. IMPRESSION: Right-sided pelvic fractures, as described. HYPERTENSION - RESUME HOME REGIMEN - MONITOR PRESSURES CLOSELY - SHE HAS EXTENSIVE HISTORY OF HYPERTENSIVE URGENCY. IRON DEFICIENCY ANEMIA - PT TO BE GIVEN A DOSE OF INFED TODAY. MEMORY LOSS - SUPPORTIVE CARE ONLY AT THIS TIME. GENERALIZED WEAKNESS - - WOULD BENEFIT FROM THERAPY IN THE HOSPITAL IF HER INSURANCE WILL APPROVE OF THE STAY. HYPOTHYROID - RESUME LEVOTHYROXINE. CONSTIPATION - CHRONIC - DUE TO OPIODS AND DECREASED ACTIVITY - STARTED RELISTOR - FIRST INJECTION LAST NIGHT - HELPED ALMOST IMMEDIATELY PER HER DTR'S REPORT - CONTINUE WITH RELISTOR INJECTIONS [id number] AND ALSO CONTINUE WITH DULCOLAX, MIRALAX. CHRONIC GASEOUS DISTENTION - CONTINUE WITH BEANO AND GAS-EX GERD - CONTINUE WITH CURRENT HOME REGIMEN. CHRONIC PRURITUS - PRN TRIAMCINOLONE CHRONIC ANXIETY AND CHRONIC DEPRESSION - RESTARTED HOME REGIMEN - ALPRAZOLAM AND CYMBALTA WAITING ON INPT REHAB TO REPORT IF SHE HAS BEEN ACCEPTED PENDING HER INSURANCE DECISION - IF NOT WE WILL HAVE TO LOOK AT [facility] FOR THERAPY. Clinical Quality Measures Admission Status Admission Dx HYPONATREMIA PELVIC FRACTURE - RIGHT SACRAL ALA AND SUPERIOR AND INFERIOR RAMI HYPERTENSION MEMORY LOSS GENERALIZED WEAKNESS HYPOTHYROID CONSTIPATION CHRONIC GASEOUS DISTENTION GERD CHRONIC PRURITUS CHRONIC ANXIETY CHRONIC DEPRESSION DVT/VTE Risk/Contraindication: Risk Factor Score Per Nursin RFS Level Per Nursing on Admit: 4+=Very High FAWAD JACOBSON MD Jun 29, 2019 07:35
[2019-06-29 07:40] VITALS: BP 145/73
[2019-06-29] MEDS: NS IV 1000 ML 1,000 ML IV SCH ×2 (07:41→20:34)
[2019-06-29] MEDS ORDERED: FERRIC CARBOXYMALTOSE INJ 750 MG in NS (IVPB) 250 ML IV SCH (07:45)
[2019-06-29] MEDS ORDERED: NS IV 500 ML 500 ML IV SCH (07:48)
[2019-06-29] MEDS ORDERED: RT-ALBUTEROL SULF 2.5 MG/3 ML PRE-MIX VIAL IH PRN (08:00)
[2019-06-29] MEDS ORDERED: HYDROCORTISONE 100 MG/2 ML (Solu-CORTEF) VIAL IV PRN (08:00)
[2019-06-29] MEDS ORDERED: IRON DEXTRAN INJECTION 25 MG in NS (IVPB) 5.75 ML IV NR (08:00)
[2019-06-29] MEDS ORDERED: diphenhydrAMINE 50 MG/ML INJ (BENADRYL) IV PRN (08:00)
[2019-06-29] MEDS ORDERED: IRON DEXTRAN INJECTION 1,000 MG in NS (IVPB) 250 ML IV NR (08:00)
[2019-06-29] MEDS ORDERED: EPINEPHrine INJECTION 1 MG/ML AMP IM PRN (08:00)
[2019-06-29] MEDS: CARVEDILOL 6.25 MG (COREG) TAB PO SCH ×2 (09:08→20:28)
[2019-06-29] MEDS: POLYETHYLENE GLYCOL 17 GM (MIRALAX) PACK PO SCH ×2 (09:08→20:30)
[2019-06-29] MEDS: DULoxetine 20 MG (CYMBALTA) CAP PO SCH ×2 (09:09→20:28)
[2019-06-29] MEDS: lisINopril 10 MG (PRINIVIL) TABLET PO SCH ×2 (09:09→20:29)
[2019-06-29] MEDS: amLODIPine 5 MG (NORVASC) TAB PO SCH (09:09)
[2019-06-29] MEDS: LORATADINE (CLARITIN) 10 MG TAB PO SCH (09:09)
[2019-06-29] MEDS: LEVOTHYROXINE 50 MCG (LEVOTHROID) TAB PO SCH (09:09)
[2019-06-29] MEDS: DICLOFENAC 1% GEL 100 GM (VOLTAREN) TUBE TOP SCH ×3 (09:12→21:00)
[2019-06-29] MEDS: METHYLNALTREXONE 12 MG/0.6 ML (RELISTOR) VIAL SQ SCH (09:12)
--- NOTE | 2019-06-29 09:53 | Physical Therapy Daily Note ---
PT Daily Note-Current Subjective Patient agrees to PT. Reports 8/10 right pelvic/hip pain Pain Numeric Pain Scale: 8 Location: Right Location Body Site: Pelvic Pain Description: Acute, Sharp Mental Status Patient Orientation: Normal For Age Attachments: Oxygen, Roberto Catheter, IV Transfers Therapy Code Descriptions/Definitions Functional [place] Measure: 0=Not Assessed/NA 4=Minimal Assistance 1=Total Assistance 5=Supervision or Setup 2=Maximal Assistance 6=Modified [place] 3=Moderate Assistance 7=Complete [place] Therapy Quality Codes: 6 Independent with activity with or without an assistive device 5 Patient requires set up or clean up by helper. Patient completes activity by themselves 4 Supervision or touching assist (CGA). [place] provide cues , steadying assist 3 The helper provides less than half the effort to complete the activity 2 The helper provides more than half the effort to complete the activity 1 Dependent. The helper does all the effort to complete an activity 7 Patient refused to complete or attempt activity 9 The patient did not perform the activity before the current illness or injury 88 Not attempted due to Medical conditions or safety concerns Transfers (B, C, W/C) (FIM): 3 Scootin Supine to/from Sit: 3 Sit to/from Stand: 3 Bed to/from Chair: 4 Patient is very resistive with all mobility due to right LE pain. She is rigid in right LE position due to pain. Weight Bearing Right Lower Extremity: Right Weight Bearing/Tolerated Left Lower Extremity: Left Weight Bearing/Tolerated pelvic fracture Gait Training Gait (FIM): 1 Distance (FIM): 1=up to 49 ft Distance: 15' Gait Level of Assist: 3 Gait Persons Needed: 1 Gait Assistive Device: FWW antalgic gait sequence with extended right LE. Noted IR right LE which is her normal per family report. Exercises Supine Ex: Ankle pumps, Quad Set, Heel Slides Supine Reps: 10 (AROM left LE/AAROM right LE with noted resistance due to pain) Seated Therapy Exercises: Long arc quads Seated Reps: 15 Assessment Patient progressing slowly with treatment due to right LE pain. PT to continue to increase activity as tolerated by patient. PT Short Term Goals Short Term Goals Time Frame: Jul 04, 2019 Transfers (B,C,W/C) (FIM): 4 Gait (FIM): 1 Distance (FIM): 1=up to 49 ft Gait Distance Comment: 15' Gait Level of Assist: 3 Gait Assistive Device: FWW PT Detention Goals Detention Goals PT Detention Goals Time Frame: Jul 07, 2019 Transfers (B,C,W/C) (FIM): 5 Gait (FIM): 2 Gait distance (FIM): 1=335-94 ft Distance: 75' Gait Level of Assist: 4 Gait Assistive Device: FWW PT Plan Treatment/Plan Treatment Plan: Continue Plan of Care Treatment Plan: Bed Mobility, Education, Functional Activity Carol, Functional Strength, Gait, Safety, Therapeutic Exercise, Transfers Treatment Duration: Jul 07, 2019 Frequency: 11 times per week Estimated Hrs Per Day: .5 hour per day Patient and/or Family Agrees t: Yes Time/GCodes Time In: 908 Time Out: 931 Total Billed Treatment Time: 23 Total Billed Treatment 1 visit GT 14 min EX 9 min TERRANCE STONE PT Jun 29, 2019 09:53
--- NOTE | 2019-06-29 10:37 | NUR ---
CM/SS, IRF submitted request to insurance, awaiting confirmation of benefits/pre-auth.
[2019-06-29] MEDS: LACTOBACILLUS ACIDOPHILUS (PROBIOTIC) CAPSULE PO SCH (11:26)
--- NOTE | 2019-06-29 12:40 | NUR ---
IRF Received denial for admission from insurance. Dr. Graham and SW notified.
--- NOTE | 2019-06-29 13:30 | Physical Therapy Daily Note ---
PT Daily Note-Current Subjective Patient agrees to PT. Agrees to exercises only. Transfers Therapy Code Descriptions/Definitions Functional [place] Measure: 0=Not Assessed/NA 4=Minimal Assistance 1=Total Assistance 5=Supervision or Setup 2=Maximal Assistance 6=Modified [place] 3=Moderate Assistance 7=Complete [place] Therapy Quality Codes: 6 Independent with activity with or without an assistive device 5 Patient requires set up or clean up by helper. Patient completes activity by themselves 4 Supervision or touching assist (CGA). [place] provide cues , steadying bindu t 3 The helper provides less than half the effort to complete the activity 2 The helper provides more than half the effort to complete the activity 1 Dependent. The helper does all the effort to complete an activity 7 Patient refused to complete or attempt activity 9 The patient did not perform the activity before the current illness or injury 88 Not attempted due to Medical conditions or safety concerns Transfers (B, C, W/C) (FIM): 2 Scootin Weight Bearing Right Lower Extremity: Right Weight Bearing/Tolerated Left Lower Extremity: Left Weight Bearing/Tolerated pelvic fracture Exercises Supine Ex: Ankle pumps, Quad Set, Heel Slides, Straight leg raise, Hip abd/add Supine Reps: 10 (3 sets left LE AROM/right LE AAROM) Assessment Patient tolerated exercises and is receiving currently iron. PT to increase activity as tolerated by patient. PT Short Term Goals Short Term Goals Time Frame: Jul 04, 2019 Transfers (B,C,W/C) (FIM): 4 Gait (FIM): 1 Distance (FIM): 1=up to 49 ft Gait Distance Comment: 15' Gait Level of Assist: 3 Gait Assistive Device: FWW PT Cable Splicer Helper Goals Half-Way Goals PT Half-Way Goals Time Frame: Jul 07, 2019 Transfers (B,C,W/C) (FIM): 5 Gait (FIM): 2 Gait distance (FIM): 6=772-27 ft Distance: 75' Gait Level of Assist: 4 Gait Assistive Device: FWW PT Plan Treatment/Plan Treatment Plan: Continue Plan of Care Treatment Plan: Bed Mobility, Education, Functional Activity Carol, Functional Strength, Gait, Safety, Therapeutic Exercise, Transfers Treatment Duration: Jul 07, 2019 Frequency: 11 times per week Estimated Hrs Per Day: .5 hour per day Patient and/or Family Agrees t: Yes Time/GCodes Time In: 1255 Time Out: 1311 Total Billed Treatment Time: 16 Total Billed Treatment 1 visit EX 16 min TERRANCE STONE PT Jun 29, 2019 13:30
--- NOTE | 2019-06-29 13:40 | Occupational Ther Daily Note ---
OT Current Status-Daily Note Subjective Pt in bed, agrees to therapy. Pt reports pain, but states it's better than it has been. RN states okay to get up to chair. Mental Status/Objective Therapy Code Descriptions/Definitions Functional [place] Measure: 0=Not Assessed/NA 4=Minimal Assistance 1=Total Assistance 5=Supervision or Setup 2=Maximal Assistance 6=Modified [place] 3=Moderate Assistance 7=Complete [place] Attachments: Roberto Catheter, IV, Oxygen ADL-Treatment Pt supine to sit with mod assist. Assist to scoot to EOB. Sit to stand with mod assist and cues for hand placement. Transfer to chair with FWW with min assist and slow pace. Assist for walker management. Pt completed grooming tasks while seated. Brushed hair and washed face with SBA. Daughter assists pt to open Ensure, then pt is able to drink without assist. Pt sitting in chair with needs met and daughter present after session, RN notified. Eating (FIM): 5 Grooming (FIM): 5 OT Short Term Goals Short Term Goals Time Frame: Jul 05, 2019 Eating(FIM): 5 Grooming(FIM): 5 Bathing(FIM): 4 Upper Body Dressing(FIM): 5 Lower Body Dressing(FIM): 4 Toileting(FIM): 4 Transfers (B,C,W/C) (FIM): 4 Toilet/Commode Transfer(FIM): 4 Additional Short Term Goals: 1-Demonstrate ADL Tasks, 2-Verbalize Understanding, 3-ImproveStrength/Carol 1=Demonstrate adherence to instructed precautions during ADL tasks. 2=Patient will verbalize/demonstrate understanding of assistive devices/modifications for ADL. 3=Patient will improve strength/tolerance for activity to enable patient to perform ADL's. OT Mcc Goals Mcc Goals Time Frame: Jul 12, 2019 Eating (FIM): 6 Grooming(FIM): 5 Bathing(FIM): 5 Upper Body Dressing(FIM): 6 Lower Body Dressing(FIM): 5 Toileting(FIM): 6 Transfers (B,C,W/C) (FIM): 6 Toilet/Commode Transfer(FIM): 6 Shower Transfer(FIM): 5 Additional Goals: 1-Demonstrate ADL Tasks, 2-Verbalize Understanding, 3- ImproveStrength/Carol 1=Demonstrate adherence to instructed precautions during ADL tasks. 2=Patient will verbalize/demonstrate understanding of assistive devices/modifications for ADL. 3=Patient will improve strength/tolerance for activity to enable patient to perform ADL's. OT Education/Plan Discharge Recommendations Plan/Recommendations: Continue POC Treatment Plan/Plan of Care Patient would benefit from OT for education, treatment and training to promote independence in ADL's, mobility, safety and/or upper extremity function for ADL's. Plan of Care: ADL Retraining, Functional Mobility, UE Funct Exercise/Act Treatment Duration: Jul 12, 2019 Frequency: 5 times per week Estimated Hrs Per Day: .5 hour per day Agreement: Yes Rehab Potential: Good Time/GCodes Start Time: 13:20 Stop Time: 13:34 Total Time Billed (hr/min): 14 Billed Treatment Time 1 visit, ADL(14minutes) HERNÁN CHRISTIANSEN OT Jun 29, 2019 13:40
[2019-06-29 16:00] VITALS: BP 134/73
--- NOTE | 2019-06-29 16:12 | NUR ---
CM/SS. Patient insurance did not approve benefits for inpatient IRF services. As planned, referral completed with [facility] who will now pursue preauthorization through patient Medicare Advantage [facility] insurance. [facility] has requested a private room on patient behalf. CARE Assessment pending.
[2019-06-29] MEDS: ALPRAZolam 0.25 MG (XANAX) TAB PO PRN (20:29)
[2019-06-29] MEDS: FAMOTIDINE 20 MG (PEPCID) TABLET PO SCH (20:30)
[2019-06-29] MEDS: MELATONIN 3 MG TABLET PO SCH (20:30)
[2019-06-30] VITALS: BP 138/72
[2019-06-30] MEDS: NS IV 1000 ML 1,000 ML IV SCH ×2 (01:12→09:36)
[2019-06-30 06:19] LABS: HEMOGLOBIN 10.2 G/DL (11.5-16.0); MEAN PLATELET VOLUME 9.3 FL (7.4-10.4); RED CELL DISTRIBUTION WIDTH 12.8 % (10.0-14.5); WHITE BLOOD COUNT 9.8 10^3/uL (4.3-11.0)
[2019-06-30 06:37] LABS: BUN/CREATININE RATIO 7; CALCIUM 9.5 MG/DL (8.5-10.1); CARBON DIOXIDE 20 MMOL/L (21-32); CHLORIDE 101 MMOL/L (98-107); CREATININE SERUM 0.67 MG/DL (0.60-1.30); GFR ESTIMATED > 60; GLUCOSE 92 MG/DL (70-105); POTASSIUM 3.2 MMOL/L (3.6-5.0); SODIUM 132 MMOL/L (135-145)
[2019-06-30] MEDS: CATHETER FLUSH 10 ML SYR IV SCH (06:59)
[2019-06-30 08:00] VITALS: BP 161/77
[2019-06-30] MEDS: lisINopril 10 MG (PRINIVIL) TABLET PO SCH ×2 (08:14→20:54)
[2019-06-30] MEDS: DULoxetine 20 MG (CYMBALTA) CAP PO SCH ×2 (08:14→20:54)
[2019-06-30] MEDS: LORATADINE (CLARITIN) 10 MG TAB PO SCH (08:14)
[2019-06-30] MEDS: amLODIPine 5 MG (NORVASC) TAB PO SCH (08:14)
[2019-06-30] MEDS: CARVEDILOL 6.25 MG (COREG) TAB PO SCH ×2 (08:14→20:54)
[2019-06-30] MEDS: POLYETHYLENE GLYCOL 17 GM (MIRALAX) PACK PO SCH ×2 (08:15→20:53)
[2019-06-30] MEDS: DICLOFENAC 1% GEL 100 GM (VOLTAREN) TUBE TOP SCH ×3 (08:15→20:56)
[2019-06-30] MEDS: LEVOTHYROXINE 50 MCG (LEVOTHROID) TAB PO SCH (08:15)
[2019-06-30] MEDS: ALPRAZolam 0.25 MG (XANAX) TAB PO SCH ×2 (08:15→11:37)
[2019-06-30] MEDS: HYDROcodone/APAP 10 MG/325 MG (LORTAB) TAB PO PRN (09:06)
--- NOTE | 2019-06-30 11:31 | Progress Note - Hospitalist ---
Subjective HPI/CC On Admission Date Seen by Provider: Jun 30, 2019 Time Seen by Provider: 11:30 Subjective/Events-last exam Son at bedside Pain continues IRF not approved by insurance Needs skilled care and likely permanent placement UTI symptoms and initial UA normal so will check UA again since she had a cath eter per RN and noted UTI so placed on Rocephin empirically and await UCx No BM yet IV fell out but will need to restart again Pain limits PT/OT Sodium 132 Fluid restriction initiated 1500 cc/day Review of Systems General: Fatigue Gastrointestinal: Constipation Musculoskeletal: leg pain Objective Exam Vital Signs Vital Signs Date Time Temp Pulse Resp B/P (MAP) Pulse Ox O2 Delivery O2 Flow Rate FiO2 06/30/19 08:00 97.8 77 18 161/77 (105) 97 Nasal Cannula 2.00 Capillary Refill : Less Than 3 SecondsLess Than 3 Seconds General Appearance: No Apparent Distress, WD/WN, Chronically ill, Thin Respiratory: Chest Non Tender, Lungs Clear, Normal Breath Sounds, No Accessory Muscle Use, No Respiratory Distress Cardiovascular: Regular Rate, Rhythm, No Edema, No Gallop, No JVD, No Murmur, Normal Peripheral Pulses Extremity: Other (limited ROM legs due to pelvis fractures) Neurologic/Psychiatric: Alert, Oriented x3, No Motor/Sensory Deficits, Normal Mood/Affect, back panel padder II-XII Norm as Tested Results/Procedures Lab Laboratory Tests 06/30/19 06:05 Patient resulted labs reviewed. Assessment/Plan Assessment and Plan Assess & Plan/Chief Complaint Assessment per PCP: HYPONATREMIA-improved, will place on gentle fluid restriction PELVIC FRACTURE - RIGHT SACRAL ALA AND SUPERIOR AND INFERIOR RAMI HYPERTENSION IRON DEFICIENCY ANEMIA- level 24 so start on Venofer MEMORY LOSS GENERALIZED WEAKNESS HYPOTHYROID CONSTIPATION-give more gentle meds CHRONIC GASEOUS DISTENTION GERD CHRONIC PRURITUS CHRONIC ANXIETY CHRONIC DEPRESSION Acute UTI w/dysuria s/p catheter- place on Rocephin empirically and Pyridium for discomfort Immobile now and high risk for DVT so place on low dose of Lovenox and monitor Hgb Plan: Rocephin Pyridium Very frail status Needs skilled care at [place] Son at bedside Prognosis guarded given her advanced age and limited activity high risk for pneumonia and delirium Low dose Lovenox for DVT PPx since she is immobile Diagnosis/Problems Diagnosis/Problems (1) Closed fracture of single pubic ramus of pelvis Status: Acute Qualifiers: Encounter type: initial encounter Laterality: right Qualified Codes: S32.591A - Other specified fracture of right pubis, initial encounter for closed fracture (2) UTI (urinary tract infection) Status: Acute Qualifiers: Urinary tract infection type: acute cystitis Hematuria presence: without hematuria Qualified Codes: N30.00 - Acute cystitis without hematuria (3) Hypertension Status: Acute Qualifiers: Hypertension type: essential hypertension Qualified Codes: I10 - Essential (primary) hypertension (4) Diverticulosis of sigmoid colon Status: Chronic (5) Hyponatremia syndrome Status: Acute (6) Constipation Status: Acute Qualifiers: Constipation type: slow transit constipation Qualified Codes: K59.01 - Slow transit constipation Clinical Quality Measures DVT/VTE Risk/Contraindication: Risk Factor Score Per Nursin RFS Level Per Nursing on Admit: 4+=Very High STUART BRUMFIELD DO Jun 30, 2019 11:31
[2019-06-30] MEDS: LACTOBACILLUS ACIDOPHILUS (PROBIOTIC) CAPSULE PO SCH (11:37)
--- NOTE | 2019-06-30 13:00 | NUR ---
Dr. Snowden notified of patient c/o burning with urination and frequency, no orders received at this time.
[2019-06-30] MEDS: DOCUSATE SODIUM 100 MG (COLACE) CAP PO SCH ×2 (13:08→20:54)
[2019-06-30] MEDS: SENNA W/DOCUSATE (SENOKOT S) TABLET PO SCH ×2 (13:08→21:02)
--- NOTE | 2019-06-30 13:09 | Physical Therapy Daily Note ---
PT Daily Note-Current Subjective Pt in bed, on bedpan. Max encouragement to participate with PT, appears mildly confused. Stated she had burning with urination, nursing notified. Mental Status Patient Orientation: Person, Confused, Place, Situation Attachments: Oxygen Transfers Therapy Code Descriptions/Definitions Functional [place] Measure: 0=Not Assessed/NA 4=Minimal Assistance 1=Total Assistance 5=Supervision or Setup 2=Maximal Assistance 6=Modified [place] 3=Moderate Assistance 7=Complete [place] Therapy Quality Codes: 6 Independent with activity with or without an assistive device 5 Patient requires set up or clean up by helper. Patient completes activity by themselves 4 Supervision or touching assist (CGA). [place] provide cues , steadying assist 3 The helper provides less than half the effort to complete the activity 2 The helper provides more than half the effort to complete the activity 1 Dependent. The helper does all the effort to complete an activity 7 Patient refused to complete or attempt activity 9 The patient did not perform the activity before the current illness or injury 88 Not attempted due to Medical conditions or safety concerns Transfers (B, C, W/C) (FIM): 3 Scootin Supine to/from Sit: 3 Sit to/from Stand: 4 Weight Bearing Right Lower Extremity: Right Weight Bearing/Tolerated Left Lower Extremity: Left Weight Bearing/Tolerated pelvic fracture Gait Training Gait (FIM): 2 Distance (FIM): 1=up to 49 ft Distance: 15 Gait Level of Assist: 4 Gait Persons Needed: 1 Gait Assistive Device: FWW Pt ambulates with extremely slow, antalgic gait. Decreased step length (B), step-to gait, (R) LE IR. Steady, CGA for safety. Treatments Sit<->stand and bed->BSC transfer with min A x 1 with skilled VCS for use of hands for safety with sit<->stand; Pt tends to "plop" when sitting. Gait training with FWW. Pt ambulated within room and returned to bed with O2 in situ, needs met. Assessment Current Status: Good Progress Pt tolerated well. Very slow with functional mobility but good tolerance. Pt self-limits due to anticipation of pain but tolerated activity well without reports of increased pain this date. PT Short Term Goals Short Term Goals Time Frame: Jul 04, 2019 Transfers (B,C,W/C) (FIM): 4 Gait (FIM): 1 Distance (FIM): 1=up to 49 ft Gait Distance Comment: 15' Gait Level of Assist: 3 Gait Assistive Device: FWW PT Correction Goals Correction Goals PT Relief Pilot Goals Time Frame: Jul 07, 2019 Transfers (B,C,W/C) (FIM): 5 Gait (FIM): 2 Gait distance (FIM): 8=224-81 ft Distance: 75' Gait Level of Assist: 4 Gait Assistive Device: FWW PT Plan Problem List Problem List: Activity Tolerance, Functional Strength, Safety, Balance, Gait, Transfer, Bed Mobility, ROM Treatment/Plan Treatment Plan: Continue Plan of Care Treatment Plan: Bed Mobility, Education, Functional Activity Carol, Functional Strength, Gait, Safety, Therapeutic Exercise, Transfers Treatment Duration: Jul 07, 2019 Frequency: 11 times per week Estimated Hrs Per Day: .5 hour per day Patient and/or Family Agrees t: Yes Safety Risks/Education Patient Education: Gait Training, Transfer Techniques Teaching Recipient: Patient Teaching Methods: Discussion Response to Teaching: Verbalize Understanding, Reinforcement Needed Time/GCodes Time In: 1100 Time Out: 1136 Total Billed Treatment Time: 36 Total Billed Treatment 1, FA x 10', Gt x 26' ZIGGY TEIXEIRA DPT Jun 30, 2019 13:09
--- NOTE | 2019-06-30 13:50 | NUR ---
Cath UA obtained (straight cath) and sent to lab
[2019-06-30] MEDS: PHENAZOPYRIDINE 100 MG (PYRIDIUM) TABLET PO PRN ×2 (13:57→20:54)
[2019-06-30 14:00] LABS: BILIRUBIN,URINE NEGATIVE (NEGATIVE); CLARITY,URINE SLIGHTLY CLOUDY; COLOR,URINE YELLOW; GLUCOSE, URINE (UA) NEGATIVE (NEGATIVE); KETONES,URINE NEGATIVE (NEGATIVE); LEUKOCYTE ESTERASE ,URINE 3+ (NEGATIVE); NITRITE,URINE NEGATIVE (NEGATIVE); PH,URINE 6.5 (5-9); PROTEIN,URINE 3+ (NEGATIVE); UROBILINOGEN,URINE NORMAL (NORMAL)
[2019-06-30 14:22] LABS: BACTERIA,URINE TRACE /HPF; RBC,URINE 30-50 /HPF; WBC,URINE TNTC /HPF
[2019-06-30] MEDS: KCL 10 MEQ TAB (MICRO K) PO SCH ×2 (15:29→20:54)
[2019-06-30] MEDS: ENOXAPARIN 30 MG/0.3 ML (LOVENOX) SYR SC SCH (15:29)
[2019-06-30] MEDS: cefTRIAXone FOR IV USE 1,000 MG in WATER (STERILE) FOR INJECTION 10 ML IV SCH (15:49)
[2019-06-30 15:56] VITALS: BP 147/83
[2019-06-30] MEDS: IRON SUCROSE 200 MG/10 ML (VENOFER) VIAL IV SCH (16:12)
[2019-06-30 20:41] VITALS: BP 150/68
[2019-06-30] MEDS: FAMOTIDINE 20 MG (PEPCID) TABLET PO SCH (20:54)
[2019-06-30] MEDS: MELATONIN 3 MG TABLET PO SCH (20:55)
[2019-07-01] VITALS: BP 150/73
[2019-07-01] MEDS: ALPRAZolam 0.25 MG (XANAX) TAB PO SCH ×2 (05:38→11:13)
[2019-07-01 05:46] LABS: BASOPHILS % (AUTO) 0 % (0-10); EOSINOPHILS # (AUTO) 0.2 10^3/uL (0.0-0.3); EOSINOPHILS % (AUTO) 2 % (0-10); HEMATOCRIT 31 % (35-52); HEMOGLOBIN 10.7 G/DL (11.5-16.0); LYMPHOCYTES % (AUTO) 10 % (12-44); MEAN CORPUSCULAR HEMOGLOBIN 31 PG (25-34); MEAN CORPUSCULAR HGB CONC 34 G/DL (32-36); MEAN CORPUSCULAR VOLUME 90 FL (80-99); MEAN PLATELET VOLUME 9.4 FL (7.4-10.4); MONOCYTES # (AUTO) 0.3 X 10^3 (0.0-1.0); MONOCYTES % (AUTO) 4 % (0-12); NEUTROPHILS % (AUTO) 84 % (42-75); PLATELET COUNT 165 10^3/uL (130-400); RED CELL DISTRIBUTION WIDTH 12.9 % (10.0-14.5); WHITE BLOOD COUNT 9.5 10^3/uL (4.3-11.0)
[2019-07-01 06:06] LABS: ALANINE AMINOTRANSFERASE 12 U/L (0-55); ALBUMIN 3.7 GM/DL (3.2-4.5); ALKALINE PHOSPHATASE 80 U/L (40-136); BILIRUBIN,TOTAL 0.8 MG/DL (0.1-1.0); BUN/CREATININE RATIO 10; CALCIUM 9.6 MG/DL (8.5-10.1); CARBON DIOXIDE 22 MMOL/L (21-32); CHLORIDE 99 MMOL/L (98-107); CREATININE SERUM 0.72 MG/DL (0.60-1.30); GFR ESTIMATED > 60; GLUCOSE 90 MG/DL (70-105); POTASSIUM 3.2 MMOL/L (3.6-5.0); SODIUM 133 MMOL/L (135-145); TOTAL PROTEIN 6.5 GM/DL (6.4-8.2)
[2019-07-01 08:00] VITALS: BP 147/76
[2019-07-01] MEDS: KCL 10 MEQ TAB (MICRO K) PO SCH ×2 (10:00→21:01)
[2019-07-01] MEDS: LORATADINE (CLARITIN) 10 MG TAB PO SCH (10:00)
[2019-07-01] MEDS: METHYLNALTREXONE 12 MG/0.6 ML (RELISTOR) VIAL SQ SCH (10:01)
[2019-07-01] MEDS: amLODIPine 5 MG (NORVASC) TAB PO SCH (10:01)
[2019-07-01] MEDS: PHENAZOPYRIDINE 100 MG (PYRIDIUM) TABLET PO PRN ×2 (10:01→21:02)
[2019-07-01] MEDS: DULoxetine 20 MG (CYMBALTA) CAP PO SCH ×2 (10:01→21:01)
[2019-07-01] MEDS: CARVEDILOL 6.25 MG (COREG) TAB PO SCH ×2 (10:01→21:02)
[2019-07-01] MEDS: LEVOTHYROXINE 50 MCG (LEVOTHROID) TAB PO SCH (10:01)
[2019-07-01] MEDS: lisINopril 10 MG (PRINIVIL) TABLET PO SCH ×2 (10:01→21:01)
[2019-07-01] MEDS: DICLOFENAC 1% GEL 100 GM (VOLTAREN) TUBE TOP SCH ×3 (10:02→23:51)
[2019-07-01] MEDS: HYDROcodone/APAP 10 MG/325 MG (LORTAB) TAB PO PRN ×3 (10:03→21:02)
[2019-07-01] MEDS: DOCUSATE SODIUM 100 MG (COLACE) CAP PO SCH ×2 (10:40→21:00)
[2019-07-01] MEDS: POLYETHYLENE GLYCOL 17 GM (MIRALAX) PACK PO SCH ×2 (10:40→21:00)
[2019-07-01] MEDS: SENNA W/DOCUSATE (SENOKOT S) TABLET PO SCH ×2 (10:40→23:50)
[2019-07-01] MEDS: LACTOBACILLUS ACIDOPHILUS (PROBIOTIC) CAPSULE PO SCH (11:13)
--- NOTE | 2019-07-01 12:03 | Progress Note - Hospitalist ---
Subjective HPI/CC On Admission Date Seen by Provider: Jul 01, 2019 Time Seen by Provider: 11:15 Subjective/Events-last exam Bowel movement finally today after multiple meds given Overall she feels much better since her bowels are moving senior living placement is next UTI is being treated with empiric treatment of Rocephin Son at the bedside Dementia precludes understanding of the exact treatment plan she is on Pain is a little better Overall improved but very poor prognosis giving her advanced age at 88 Review of Systems General: Fatigue Musculoskeletal: leg pain Objective Exam Vital Signs Vital Signs Date Time Temp Pulse Resp B/P (MAP) Pulse Ox O2 Delivery O2 Flow Rate FiO2 07/01/19 08:00 97.2 78 16 147/76 (99) 97 Nasal Cannula 2.00 Capillary Refill : Less Than 3 SecondsLess Than 3 Seconds General Appearance: No Apparent Distress, WD/WN, Chronically ill Respiratory: Chest Non Tender, Lungs Clear, Normal Breath Sounds, No Accessory Muscle Use, No Respiratory Distress Cardiovascular: Regular Rate, Rhythm, No Edema, No Gallop, No JVD, No Murmur, Normal Peripheral Pulses Neurologic/Psychiatric: Alert, Oriented x3, No Motor/Sensory Deficits, Normal Mood/Affect Results/Procedures Lab Laboratory Tests 07/01/19 05:25 Patient resulted labs reviewed. Assessment/Plan Assessment and Plan Assess & Plan/Chief Complaint Assessment per PCP: HYPONATREMIA-improved, will place on gentle fluid restriction and 133 today PELVIC FRACTURE - RIGHT SACRAL ALA AND SUPERIOR AND INFERIOR RAMI HYPERTENSION IRON DEFICIENCY ANEMIA- level 24 so start on Venofer MEMORY LOSS GENERALIZED WEAKNESS HYPOTHYROID CONSTIPATION-give more gentle meds CHRONIC GASEOUS DISTENTION GERD CHRONIC PRURITUS CHRONIC ANXIETY CHRONIC DEPRESSION Acute UTI w/dysuria s/p catheter- place on Rocephin empirically and Pyridium for discomfort Immobile now and high risk for DVT so place on low dose of Lovenox and monitor Hgb Plan: Rocephin Pyridium Very frail status Needs skilled care at [place] Son at bedside Prognosis guarded given her advanced age and limited activity high risk for pneumonia and delirium Low dose Lovenox for DVT PPx since she is immobile Diagnosis/Problems Diagnosis/Problems (1) Closed fracture of single pubic ramus of pelvis Status: Acute Qualifiers: Encounter type: initial encounter Laterality: right Qualified Codes: S32.591A - Other specified fracture of right pubis, initial encounter for closed fracture (2) UTI (urinary tract infection) Status: Acute Qualifiers: Urinary tract infection type: acute cystitis Hematuria presence: without hematuria Qualified Codes: N30.00 - Acute cystitis without hematuria (3) Hypertension Status: Acute Qualifiers: Hypertension type: essential hypertension Qualified Codes: I10 - Essential (primary) hypertension (4) Diverticulosis of sigmoid colon Status: Chronic (5) Hyponatremia syndrome Status: Acute (6) Constipation Status: Acute Qualifiers: Constipation type: slow transit constipation Qualified Codes: K59.01 - Slow transit constipation Clinical Quality Measures DVT/VTE Risk/Contraindication: Risk Factor Score Per Nursin RFS Level Per Nursing on Admit: 4+=Very High STUART BRUMFIELD DO Jul 01, 2019 12:03
[2019-07-01] MEDS: ENOXAPARIN 30 MG/0.3 ML (LOVENOX) SYR SC SCH (15:18)
[2019-07-01] MEDS: cefTRIAXone FOR IV USE 1,000 MG in WATER (STERILE) FOR INJECTION 10 ML IV SCH (15:21)
[2019-07-01 15:55] VITALS: BP 161/78
[2019-07-01] MEDS: FAMOTIDINE 20 MG (PEPCID) TABLET PO SCH (21:01)
[2019-07-01] MEDS: MELATONIN 3 MG TABLET PO SCH (21:01)
[2019-07-01] MEDS: ALPRAZolam 0.25 MG (XANAX) TAB PO PRN (21:02)
[2019-07-02 01:15] VITALS: BP 145/78
--- NOTE | 2019-07-02 04:41 | NUR ---
iv site dcd by pt. from left fa.. will leave out d/t pt being dcd this am
[2019-07-02] MEDS: ALPRAZolam 0.25 MG (XANAX) TAB PO SCH ×2 (05:22→09:23)
[2019-07-02 05:52] LABS: BUN/CREATININE RATIO 9; CALCIUM 9.7 MG/DL (8.5-10.1); CARBON DIOXIDE 22 MMOL/L (21-32); CHLORIDE 100 MMOL/L (98-107); GFR ESTIMATED > 60; GLUCOSE 83 MG/DL (70-105); POTASSIUM 3.2 MMOL/L (3.6-5.0); SODIUM 133 MMOL/L (135-145)
[2019-07-02] MEDS ORDERED: KCL 20 MEQ TAB (K-DUR) PO ONE (09:00)
[2019-07-02] MEDS: IRON SUCROSE 200 MG/10 ML (VENOFER) VIAL IV SCH (09:17)
[2019-07-02] MEDS: LORATADINE (CLARITIN) 10 MG TAB PO SCH (09:17)
--- NOTE | 2019-07-02 09:19 | Discharge Inst-Skilled Nursing ---
Discharge Inst-Skilled NF Reconcile Patient Problems Problems Reviewed?: Yes Patient Instructions Patient Problems: HYPONATREMIA PELVIC FRACTURE - RIGHT SACRAL ALA AND SUPERIOR AND INFERIOR RAMI HYPERTENSION IRON DEFICIENCY ANEMIA MEMORY LOSS GENERALIZED WEAKNESS HYPOTHYROID CONSTIPATION CHRONIC GASEOUS DISTENTION GERD CHRONIC PRURITUS CHRONIC ANXIETY CHRONIC DEPRESSION Consult/Follow Up/Orders Follow Up Appt.: 1 wk [facility] Skilled NF Admit to: [facility] Certification (SNF) I certify that SNF services are required to be given on an inpatient basis because of the above named patient's need for fpc care on a continuing basis for the conditions(s) for which he/she was receiving inpatient hospital services prior to his/her transfer to the SNF. [facility] Facility Order: Nursing Services, [facility]-Evaluate & Treat, Physical Therapy-Evaluate & Treat Oxygen Delivery Method: Room Air Discharge Diet: Regular Diet Daily Activity as Tolerated: Yes New & Resume Previous Orders New & Resume Previous Orders pt is DNR/DNI please start physical, occupational therapies - RE - pelvic fx - plan is to go back to [facility] upon discharge. Fawad Graham Jul 02, 2019 09:17 Medication List: Active Scripts Active Reported Probiotic (L.acidoph & Paracasei,B.lactis) 1 Each Capsule 1 Cap PO 1200 Benadryl Allergy (Diphenhydramine HCl) 25 Mg Tablet 12.5 Mg PO BID PRN Hydrocodone-Acetamin 7.5-325 (Hydrocodone/Acetaminophen) 1 Each Tablet 1 Tab PO Q6H PRN Alprazolam 0.25 Mg Tablet 0.25 Mg PO Q6H PRN Advil (Ibuprofen) 200 Mg Tablet 600 Mg PO Q6H PRN Imodium A-D (Loperamide HCl) 2 Mg Tablet PO UD PRN TAKE 2 TABLETS AFTER 1ST LOOSE STOOL THEN 1 TABLET AFTER EACH LOOSE STOOL. NOT TO EXCEED 4 TABS IN 24 HOURS Milk of Magnesia (Magnesium Hydroxide) 400 Mg/5 Ml Oral.susp 15 Ml PO DAILY PRN Tums (Calcium Carbonate) 300 Mg Tab.chew 2 Tab.chew PO QID PRN Miralax (Polyethylene Glycol 3350) 17 Gm Powd.pack 17 Gm PO DAILY PRN Colace (Docusate Sodium) 100 Mg Capsule 100 Mg PO DAILY PRN Triamcinolone Acetonide 0.1% Cream (Triamcinolone Acet) 15 Gm Cr TP DAILY PRN Gas-X Ultra Strength (Simethicone) 180 Mg Capsule 180 Mg PO QID PRN Melatonin 5 Mg Capsule 5 Mg PO HS Hydrocodone-Acetamin 7.5-325 (Hydrocodone/Acetaminophen) 1 Each Tablet 1 Tab PO 0800,2000 Potassium Chloride 10 Meq Tablet.er 10 Meq PO DAILY Furosemide 20 Mg Tablet 20 Mg PO DAILY Ranitidine HCl 150 Mg Tablet 150 Mg PO BID Cetirizine HCl 10 Mg Tablet 10 Mg PO DAILY Levothyroxine Sodium 50 Mcg Tablet 50 Mcg PO DAILY Beano ([id number]) 150 Unit Tablet 150 Unit PO TIDWM Triamcinolone Acetonide 0.1% Cream (Triamcinolone Acet) 15 Gm Cr TOP Q48H Alprazolam 0.25 Mg Tablet 0.25 Mg PO 0600,1200 Diclofenac Sodium 100 Gm Gel..gram. 2 Gm TOP BID Duloxetine HCl 20 Mg Capsule.dr 20 Mg PO BID Lisinopril 10 Mg Tablet 10 Mg PO BID Carvedilol 6.25 Mg Tablet 6.25 Mg PO BID HOLD FOR SBP<110 OR PULSE <60 Amlodipine Besylate 5 Mg Tablet 5 Mg PO DAILY Lab results: Laboratory Tests Test 07/02/19 04:49 Range/Units Sodium Level 133 L 135-145 MMOL/L Potassium Level 3.2 L 3.6-5.0 MMOL/L Chloride Level 100 98-107 MMOL/L Carbon Dioxide Level 22 21-32 MMOL/L Anion Gap 11 5-14 MMOL/L Blood Urea Nitrogen 7 7-18 MG/DL Creatinine 0.80 0.60-1.30 MG/DL Estimat Glomerular Filtration Rate > 60 BUN/Creatinine Ratio 9 Glucose Level 83 70-105 MG/DL Calcium Level 9.7 8.5-10.1 MG/DL My orders: Orders - FAWAD GRAHAM MD Potassium Chloride (Tablet) (K Dur Table (07/02/19 09:00) FAWAD GRAHAM MD Jul 02, 2019 09:19
[2019-07-02 09:21] VITALS: BP 179/77
[2019-07-02] MEDS: LEVOTHYROXINE 50 MCG (LEVOTHROID) TAB PO SCH (09:22)
[2019-07-02] MEDS: KCL 10 MEQ TAB (MICRO K) PO SCH ×2 (09:22→09:30)
[2019-07-02] MEDS: amLODIPine 5 MG (NORVASC) TAB PO SCH (09:23)
[2019-07-02] MEDS: LACTOBACILLUS ACIDOPHILUS (PROBIOTIC) CAPSULE PO SCH (09:23)
[2019-07-02] MEDS: lisINopril 10 MG (PRINIVIL) TABLET PO SCH (09:23)
[2019-07-02] MEDS: PHENAZOPYRIDINE 100 MG (PYRIDIUM) TABLET PO PRN (09:23)
[2019-07-02] MEDS: DOCUSATE SODIUM 100 MG (COLACE) CAP PO SCH (09:23)
[2019-07-02] MEDS: ACETAMINOPHEN 325 MG TABLET PO PRN (09:23)
[2019-07-02] MEDS: SENNA W/DOCUSATE (SENOKOT S) TABLET PO SCH (09:24)
[2019-07-02] MEDS: POLYETHYLENE GLYCOL 17 GM (MIRALAX) PACK PO SCH (09:24)
[2019-07-02] MEDS ORDERED: ALPR0.254 PO (09:25)
[2019-07-02] MEDS ORDERED: POLY17PO31 PO (09:25)
[2019-07-02] MEDS ORDERED: METH150T PO (09:25)
[2019-07-02] MEDS ORDERED: SENN-20 PO (09:25)
[2019-07-02] MEDS ORDERED: HYDR-3816 PO (09:25)
[2019-07-02] MEDS: DICLOFENAC 1% GEL 100 GM (VOLTAREN) TUBE TOP SCH ×2 (09:30→13:01)
[2019-07-02] MEDS: DULoxetine 20 MG (CYMBALTA) CAP PO SCH (09:30)
[2019-07-02] MEDS: CARVEDILOL 6.25 MG (COREG) TAB PO SCH (09:30)
--- NOTE | 2019-07-02 09:30 | Discharge Summary ---
Diagnosis/Chief Complaint Date of Admission Jun 27, 2019 at 16:00 Date of Discharge Discharge Date: Jul 02, 2019 Discharge Time: 1100 Admission Diagnosis Admission Diagnosis HYPONATREMIA PELVIC FRACTURE - RIGHT SACRAL ALA AND SUPERIOR AND INFERIOR RAMI HYPERTENSION IRON DEFICIENCY ANEMIA MEMORY LOSS GENERALIZED WEAKNESS HYPOTHYROID CONSTIPATION CHRONIC GASEOUS DISTENTION GERD CHRONIC PRURITUS CHRONIC ANXIETY CHRONIC DEPRESSION Discharge Diagnosis HYPONATREMIA PELVIC FRACTURE - RIGHT SACRAL ALA AND SUPERIOR AND INFERIOR RAMI HYPERTENSION IRON DEFICIENCY ANEMIA MEMORY LOSS GENERALIZED WEAKNESS HYPOTHYROID CONSTIPATION CHRONIC GASEOUS DISTENTION GERD CHRONIC PRURITUS CHRONIC ANXIETY CHRONIC DEPRESSION HYPOKALEMIA Reason Hospital Visit PT IS AN 88 Y/O FEMALE WHO IS WELL KNOWN TO ME FROM CLINIC. SHE PRESENTED TO THE EMERGENCY DEPARTMENT WITH PELVIC/HIP PAIN STATUS POST FALL AT HER ASSISTED LIVING FACILITY - [facility]. PER THE PATIENT'S DTR - THE PT WAS GETTING UP IN THE MIDDLE OF THE NIGHT - WAS FOUND DOWN ON THE FLOOR BY [facility] STAFF AROUND 3-4 AM - THEY ASSISTED HER FROM THE FLOOR TO THE RESTROOM AND THEN BACK TO BED. THE PT WAS HAVING SOME PAIN, BUT NOT EXTREME - THEY RE-CHECKED ON HER A LITTLE LATER AND SHE WAS HAVING MORE DISCOMFORT SO THEY CALLED HER SON FOR DIRECTION TO THEIR DESIRE FOR HER TO GO TO THE HOSPITAL OR TO CONTINUE TO WATCH HER AT THE FACILITY. APPARENTLY THEY DECIDED ON ER EVALUATION SO SHE WAS TRANSPORTED TO THE HOSPITAL. AFTER XRAYS AND CT SCAN, IT WAS DETERMINED THAT SHE HAD A PELVIC FRACTURE. THE PT WAS THEN TRANSPORTED TO THE FLOOR UNDER OBSERVATION - BUT AFTER FINDING OUT THAT SHE WAS HYPONATREMIC - I ASKED THE NURSING STAFF TO START FLUIDS AND MAKE HER INPATIENT STATUS. Discharge Summary Discharge Physical Examination Allergies: Coded Allergies: aspirin (Verified Allergy, Unknown, 02/11/16) codeine (Verified Adverse Reaction, Unknown, N/V, 08/29/15) losartan (Unverified Adverse Reaction, Unknown, DIZZINESS, 08/29/15) Vitals & I&Os Vital Signs Date Time Temp Pulse Resp B/P (MAP) Pulse Ox O2 Delivery O2 Flow Rate FiO2 07/02/19 09:21 98.0 65 20 179/77 (111) 98 Room Air 07/01/19 19:28 2.00 Hospital Course HYPONATREMIA PELVIC FRACTURE - RIGHT SACRAL ALA AND SUPERIOR AND INFERIOR RAMI HYPERTENSION IRON DEFICIENCY ANEMIA MEMORY LOSS GENERALIZED WEAKNESS HYPOTHYROID CONSTIPATION CHRONIC GASEOUS DISTENTION GERD CHRONIC PRURITUS CHRONIC ANXIETY CHRONIC DEPRESSION HYPONATREMIA - STARTED IV FLUIDS AFTER PT TO THE FLOOR - NORMAL SALINE AT 100ML /HR - MONITOR ELECTROLYTES TOMORROW AND CLOSELY MONITOR PULMONARY STATUS. HOLD DIURETICS AT THIS TIME. PELVIC FRACTURE - RIGHT SACRAL ALA, RIGHT INFERIOR PUBIC RAMUS AND RIGHT SUPERIOR PUBIC RAMUS - NO SURGICAL TREATMENT INDICATED FOR THIS FRACTURE -SHE WILL NEED TO HEAL BY SECONDARY INTENTION - AND WILL NEED THERAPY FOR CONTINUED STRENGTHENING. DISCHARGE TO [facility] FOR SKILLED THERAPY. Date of Exam: 06/27/19 CT PELVIS WO PROCEDURE: CT pelvis without contrast. INDICATION: Fall and pelvic pain. There appears to be a fracture of the right sacral ala. The left sacral ala is intact. SI joints are not widened. There is also an acute fracture of the right inferior pubic ramus. There is cortical irregularity and probable fracture invol ving the right superior pubic ramus near the junction with the anterior column of the right acetabulum. The left superior and inferior pubic rami are intact. Femoral acetabular alignment is normal bilaterally. Postsurgical changes of the right hip are seen. No free fluid in the pelvis is identified. No hematoma is identified. IMPRESSION: Right-sided pelvic fractures, as described. HYPERTENSION - RESUME HOME REGIMEN - MONITOR PRESSURES CLOSELY - SHE HAS EXTENSIVE HISTORY OF HYPERTENSIVE URGENCY. IRON DEFICIENCY ANEMIA - PT TO BE GIVEN A DOSE OF INFED GIVEN IN HOSPITAL ON TUESDAY. MEMORY LOSS - SUPPORTIVE CARE ONLY AT THIS TIME. GENERALIZED WEAKNESS - WILL NEED THERAPY ON DISCHARGE - AT [facility]. HYPOTHYROID - RESUME LEVOTHYROXINE. CONSTIPATION - CHRONIC - DUE TO OPIODS AND DECREASED ACTIVITY - STARTED RELISTOR - CONTINUE WITH RELISTOR TABLETS [id number] AND ALSO CONTINUE WITH SENNA AND MIRALAX. CHRONIC GASEOUS DISTENTION - CONTINUE WITH BEANO AND GAS-EX GERD - CONTINUE WITH CURRENT HOME REGIMEN. CHRONIC PRURITUS - PRN TRIAMCINOLONE CHRONIC ANXIETY AND CHRONIC DEPRESSION - RESTARTED HOME REGIMEN - ALPRAZOLAM AND CYMBALTA INSURANCE REFUSED INPT REHAB - APPROVED SKILLED NURSING CARE - PT TO BE DISCHARGED TO SKILLED NURSING FOR SKILLED THERAPY - [facility] - TODAY. Pending Labs Laboratory Tests 07/02/19 04:49: Sodium Level 133, Potassium Level 3.2, Chloride Level 100, Carbon Dioxide Level 22, Anion Gap 11, Blood Urea Nitrogen 7, Creatinine 0.80, Estimat Glomerular Filtration Rate > 60, BUN/Creatinine Ratio 9, Glucose Level 83, Calcium Level 9.7 Discharge Condition at discharge IMPROVED Instructions to patient/family Please see electronic discharge instructions given to patient. Discharge Medications Active Scripts Active Relistor (Methylnaltrexone [place]) 150 Mg Tablet 150 Mg PO Q48H Senna-Time S Tablet (Sennosides/Docusate Sodium) 1 Each Tablet 2 Ea PO BID hold for loose stools Polyethylene Glycol 3350 17 Gm Powd.pack 17 Gm PO BID Hydrocodone-Acetamin 7.5-325 (Hydrocodone/Acetaminophen) 1 Each Tablet 1 Tab PO UD 1 tab AM, 1/2 tab noon, 1 tab HS - pt may have additional 1/2 tab up to three more doses in the day if needed for pain control Alprazolam 0.25 Mg Tablet 0.25 Mg PO 0600,1200 Reported Probiotic (L.acidoph & Paracasei,B.lactis) 1 Each Capsule 1 Cap PO 1200 Benadryl Allergy (Diphenhydramine HCl) 25 Mg Tablet 12.5 Mg PO BID PRN Advil (Ibuprofen) 200 Mg Tablet 600 Mg PO Q6H PRN Milk of Magnesia (Magnesium Hydroxide) 400 Mg/5 Ml Oral.susp 15 Ml PO DAILY PRN Tums (Calcium Carbonate) 300 Mg Tab.chew 2 Tab.chew PO QID PRN Colace (Docusate Sodium) 100 Mg Capsule 100 Mg PO DAILY PRN Triamcinolone Acetonide 0.1% Cream (Triamcinolone Acet) 15 Gm Cr TP DAILY PRN Gas-X Ultra Strength (Simethicone) 180 Mg Capsule 180 Mg PO QID PRN Melatonin 5 Mg Capsule 5 Mg PO HS Potassium Chloride 10 Meq Tablet.er 10 Meq PO DAILY Ranitidine HCl 150 Mg Tablet 150 Mg PO BID Cetirizine HCl 10 Mg Tablet 10 Mg PO DAILY Levothyroxine Sodium 50 Mcg Tablet 50 Mcg PO DAILY Beano (Mhdko-[id number]) 150 Unit Tablet 150 Unit PO TIDWM Triamcinolone Acetonide 0.1% Cream (Triamcinolone Acet) 15 Gm Cr TOP Q48H Diclofenac Sodium 100 Gm Gel..gram. 2 Gm TOP BID Duloxetine HCl 20 Mg Capsule.dr 20 Mg PO BID Lisinopril 10 Mg Tablet 10 Mg PO BID Carvedilol 6.25 Mg Tablet 6.25 Mg PO BID HOLD FOR SBP<110 OR PULSE <60 Amlodipine Besylate 5 Mg Tablet 5 Mg PO DAILY Reviewed and agree with Discharge Medication list on patient's Discharge Instruction sheet Clinical Quality Measures DVT/VTE Risk/Contraindication: Risk Factor Score Per Nursin RFS Level Per Nursing on Admit: 4+=Very High FAWAD JACOBSON MD Jul 02, 2019 09:30
--- NOTE | 2019-07-02 09:42 | Physical Therapy Daily Note ---
PT Daily Note-Current Subjective Patient agrees to PT. Pain Numeric Pain Scale: 10-Worst Possible Pain Location: Right Location Body Site: Pelvic Pain Description: Acute Mental Status Patient Orientation: Person, Time, Situation Transfers Therapy Code Descriptions/Definitions Functional [place] Measure: 0=Not Assessed/NA 4=Minimal Assistance 1=Total Assistance 5=Supervision or Setup 2=Maximal Assistance 6=Modified [place] 3=Moderate Assistance 7=Complete [place] Therapy Quality Codes: 6 Independent with activity with or without an assistive device 5 Patient requires set up or clean up by helper. Patient completes activity by themselves 4 Supervision or touching assist (CGA). [place] provide cues , steadying assist 3 The helper provides less than half the effort to complete the activity 2 The helper provides more than half the effort to complete the activity 1 Dependent. The helper does all the effort to complete an activity 7 Patient refused to complete or attempt activity 9 The patient did not perform the activity before the current illness or injury 88 Not attempted due to Medical conditions or safety concerns Transfers (B, C, W/C) (FIM): 4 Scootin Rollin Supine to/from Sit: 4 Sit to/from Stand: 4 Bed to/from Chair: 4 Weight Bearing Right Lower Extremity: Right Weight Bearing/Tolerated Left Lower Extremity: Left Weight Bearing/Tolerated pelvic fracture Gait Training Gait (FIM): 1 Distance (FIM): 1=up to 49 ft Distance: 15' Gait Level of Assist: 4 Gait Persons Needed: 1 Gait Assistive Device: FWW very slow, antalgic gait sequence Exercises Supine Ex: Ankle pumps, Quad Set, Heel Slides Supine Reps: 10 Seated Therapy Exercises: Long arc quads Seated Reps: 10 Assessment Patient tolerated activity on this date. PT to continue to increase activity as tolerated by patient. PT Short Term Goals Short Term Goals Time Frame: Jul 04, 2019 Transfers (B,C,W/C) (FIM): 4 Gait (FIM): 1 Distance (FIM): 1=up to 49 ft Gait Distance Comment: 15' Gait Level of Assist: 3 Gait Assistive Device: FWW PT Custodial Goals Custodial Goals PT Office Support Specialist Goals Time Frame: Jul 07, 2019 Transfers (B,C,W/C) (FIM): 5 Gait (FIM): 2 Gait distance (FIM): 1=196-65 ft Distance: 75' Gait Level of Assist: 4 Gait Assistive Device: FWW PT Plan Treatment/Plan Treatment Plan: Continue Plan of Care, Modify Plan, see comments (6/wk ) Treatment Plan: Bed Mobility, Education, Functional Activity Carol, Functional Strength, Gait, Safety, Therapeutic Exercise, Transfers Treatment Duration: Jul 07, 2019 Frequency: 6 times per week Estimated Hrs Per Day: .25 hour per day Patient and/or Family Agrees t: Yes Time/GCodes Time In: 841 Time Out: 904 Total Billed Treatment Time: 23 Total Billed Treatment 1 visit GT 13 min EX 10 min TERRANCE STONE PT Jul 02, 2019 09:42
--- NOTE | 2019-07-02 10:35 | Occupational Ther Daily Note ---
OT Current Status-Daily Note Subjective pt laying in bed upon OT arrival. family present in room. pt agreed to OT TX Session with focus on increasing indep with sit to stands in prep for toilet transfers. pt reports 2/10 back pain. NSG is aware. Mental Status/Objective Therapy Code Descriptions/Definitions Functional [place] Measure: 0=Not Assessed/NA 4=Minimal Assistance 1=Total Assistance 5=Supervision or Setup 2=Maximal Assistance 6=Modified [place] 3=Moderate Assistance 7=Complete [place] ADL-Treatment Transfers (B, C, W/C) (FIM): 4 (use of RW ) Other Treatment pt education on proper use of RW with proper hand positioning. pt required MOD A for bed mobility. upon siting EOB pt required MIN cuing for hand positioning. pt perform 5X2 sit to stands with CGA for safety./ balance. post OT Session pt laying in bed, call light within reach, all needs ,met. . Education OT Patient Education: Progress toward Goal/Update tx plan, Transfer techniques, Use of adapted equipment Teaching Recipient: Patient Teaching Methods: Demonstration, Discussion Response to Teaching: Return Demonstration OT Short Term Goals Short Term Goals Time Frame: Jul 05, 2019 Eating(FIM): 5 Grooming(FIM): 5 Bathing(FIM): 4 Upper Body Dressing(FIM): 5 Lower Body Dressing(FIM): 4 Toileting(FIM): 4 Transfers (B,C,W/C) (FIM): 4 Toilet/Commode Transfer(FIM): 4 Additional Short Term Goals: 1-Demonstrate ADL Tasks, 2-Verbalize Understanding, 3-ImproveStrength/Carol 1=Demonstrate adherence to instructed precautions during ADL tasks. 2=Patient will verbalize/demonstrate understanding of assistive devices/modifications for ADL. 3=Patient will improve strength/tolerance for activity to enable patient to perform ADL's. OT Processor Grain Goals Processor Grain Goals Time Frame: Jul 12, 2019 Eating (FIM): 6 Grooming(FIM): 5 Bathing(FIM): 5 Upper Body Dressing(FIM): 6 Lower Body Dressing(FIM): 5 Toileting(FIM): 6 Transfers (B,C,W/C) (FIM): 6 Toilet/Commode Transfer(FIM): 6 Shower Transfer(FIM): 5 Additional Goals: 1-Demonstrate ADL Tasks, 2-Verbalize Understanding, 3- ImproveStrength/Carol 1=Demonstrate adherence to instructed precautions during ADL tasks. 2=Patient will verbalize/demonstrate understanding of assistive devices/modifications for ADL. 3=Patient will improve strength/tolerance for activity to enable patient to perform ADL's. OT Education/Plan Problem List/Assessment Assessment: Decreased Activ Tolerance, Decreased UE Strength, Impaired Funct Balance Discharge Recommendations Plan/Recommendations: Continue POC Therapy D/C Recommendations: 24 hr Supervision Treatment Plan/Plan of Care Treatment,Training & Education: Yes Patient would benefit from OT for education, treatment and training to promote independence in ADL's, mobility, safety and/or upper extremity function for ADL's. Plan of Care: ADL Retraining, Functional Mobility, UE Funct Exercise/Act Treatment Duration: Jul 12, 2019 Frequency: 5 times per week Estimated Hrs Per Day: .5 hour per day Agreement: Yes Rehab Potential: Good Time/GCodes Start Time: 10:15 Stop Time: 10:30 Billed Treatment Time FA 15 minutes, 1 unit DELANO FOX OT Jul 02, 2019 10:35
--- NOTE | 2019-07-02 11:05 | NUR ---
Important Message from Medicare presented, reviewed, signed by son, Lalo who is Durable Power of Hook Puller and placed in patient chart. Lalo and patient, Vianney voiced no intention to appeal and deny any needs or further questions at this time.
--- NOTE | 2019-07-02 11:15 | NUR ---
CM/SS. Patient insurance as approved skilled admission to [facility] for today, belt picker is planned for 1300. Facility understands to bring wheelchair. CARE Assessment completed with patient, her son Lalo Pierre, and daughter Mariana Mcneal. Processed with [facility], faxed to [facility] along with discharge orders/instructions. Packet prepared to accompany patient. Unit RN fully updated.
[2019-07-02] MEDS: cefTRIAXone FOR IV USE 1,000 MG in WATER (STERILE) FOR INJECTION 10 ML IV SCH (13:02)
--- NOTE | 2019-07-02 13:30 | NUR ---
ANGEL STARK discharged to [facility] . family present time of discharge and report given to Roxanna eaton at the [facility] . ANGEL STARK belongings sent with patient and family . Skin dry and intact; no breakdown noted. Vital signs are stable at time of discharge. Condition is stable at time of discharge. Discharge instructions and copies of H&P, discharge summary, physician's order, lab reports, consultation reports, other dictated reports, diagnostic imaging reports, Advance Directive, eMAR, vital signs, intake and output sent with patient, Patient discharged from [facility] on 07/02/19 at 1330. ANGEL STARK left floor via wheel chair , accompanied by [facility] staff and family . ANGEL STARK and family/DPOA present at the time of discharge and verbalize understanding of discharge to [facility].
== END 2019-07-02 13:30 | DRG 641 ==
LOC: EDUNIT# 07:48 → ER 07:49 → 4TH 13:54 → UNDOADMOB 13:54 → OBSVTOIN 16:00 → INTOOBSV 16:00 → 4TH 06-28 11:03 → UNDODISIN 07-02 13:30
PROVIDERS: ADMIT Family Medicine; ATTEND Family Medicine
DX: E87.1 Hypo-osmolality and hyponatremia (principal); S32.19XA Other fracture of sacrum, initial encounter for closed fracture; S32.511A Fracture of superior rim of right pubis, initial encounter for closed fracture; S32.591A Other specified fracture of right pubis, initial encounter for closed fracture; S81.811A Laceration without foreign body, right lower leg, initial encounter; N39.0 Urinary tract infection, site not specified; K59.03 Drug induced constipation; F03.90 Unspecified dementia, unspecified severity, without behavioral disturbance, psychotic disturbance, mood disturbance, and anxiety; Z66 Do not resuscitate; R41.3 Other amnesia; R53.1 Weakness; E03.9 Hypothyroidism, unspecified; T40.2X5A Adverse effect of other opioids, initial encounter; K21.9 Gastro-esophageal reflux disease without esophagitis; R14.0 Abdominal distension (gaseous); L29.9 Pruritus, unspecified; F41.9 Anxiety disorder, unspecified; F32.9 Major depressive disorder, single episode, unspecified; G89.29 Other chronic pain; J45.909 Unspecified asthma, uncomplicated; K58.1 Irritable bowel syndrome with constipation; K57.90 Diverticulosis of intestine, part unspecified, without perforation or abscess without bleeding; M19.91 Primary osteoarthritis, unspecified site; I10 Essential (primary) hypertension; K57.30 Diverticulosis of large intestine without perforation or abscess without bleeding; W19.XXXA Unspecified fall, initial encounter; Y92.129 Unspecified place in nursing home as the place of occurrence of the external cause
CPT/HCPCS: 36415; 51702; 70450; 71045; 72125; 72192; 73502; 80048; 80053; 81000; 82728; 83540; 83735; 85007; 85025; 85027; 85610; 85730; 87088; 96361; 96374; 96376

== ENCOUNTER → 2019-07-20 | Outpatient (CLI) | payer MEDICARE ==
[~2019-07-20] MED LIST changes: +ALPH1TAB8 PO; +CALC300T4 PO; +CETI10TA17 PO; +DICL100G31 TOP; +DIPH25TA65 PO; +DOCU-143 PO; +DULO20CA19 PO; +FURO20TA4 PO; +HYDR-3816 PO; +IBUP-30 PO; +LEVO50TA6 PO; +LISI10TA2 PO; +LOPE-134 PO; +MAGN400O7 PO; +MELA5CAP PO; +METH150T PO; +POLY17PO31 PO; +POLY17PO6 PO; +POTA10TA10 PO; +RANI150T11 PO; +SENN-20 PO; +SIME180C4 PO; +TR1C15 TOP; +TR1C15 TP
--- NOTE | 2019-07-20 19:57 | Diagnostic Imaging Report ---
INDICATION: Evaluate for tuberculosis. TIME OF EXAM: 2:00 p.m. COMPARISON: Correlation is made with prior chest from 06/27/2019. FINDINGS: The heart is mildly enlarged but stable. Lungs appear to be clear of acute infiltrates. The pulmonary vascularity is normal. No effusion or pneumothorax is seen. IMPRESSION: Stable chest. No acute feature is detected. Dictated by: Dictated on workstation # [id number]
== END ==
LOC: RAD 13:24
PROVIDERS: ATTEND Nurse Practitioner Family
DX: Z03.89 Encounter for observation for other suspected diseases and conditions ruled out (principal)
CPT/HCPCS: 71045